=== PATIENT | male | born 1945 | race Caucasian/White ===

== ENCOUNTER 2019-06-23 20:45 | Emergency (ER) | payer MEDICARE, SELFPAY ==
[2019-06-23 20:47] VITALS: BP 156/93; PULSE 91; RESP 12; TEMP 36.6; O2SAT 99; BMI 32.1
[2019-06-23] MEDS: Dicyclomine 10 MG Capsule 20 MG PO (21:25)
[2019-06-23] MEDS: Ondansetron 4 MG/2 ML Vial IV (21:25)
[2019-06-23 21:28] VITALS: BP 156/93; PULSE 91; RESP 12; TEMP 36.6; O2SAT 99
--- NOTE | 2019-06-23 21:55 | ED.DCSUM_ITS ---
- ER Visit Summary Date of Service: 06/23/19 Chief Complaint: Nausea and vomiting History of Present Illness: The patient is a 73 M who has nausea and vomiting. He states that it started today. He has vomited 3 times and is had 2 episodes of diarrhea today as well. He has some mild abdominal cramping diffusely. He had admits to no urinary symptoms. He tried aspirin today to see if this would help with his symptoms. He denies a fever. He was recently discharged from a psychiatric facility. Physical Examination: Vital signs reviewed. HEENT exam unremarkable. Heart is regular rate and rhythm without murmurs. Lungs are clear to auscultation. Abdomen is soft with mild diffuse tenderness. No guarding or rebound tenderness. Extremities reveal no edema. Skin exam normal. Neurologic exam normal. Test Results: CBC normal. Glucose 150. Total bilirubin 4.3. AST 49. Right upper quadrant ultrasound reveals gallbladder folds with a polyp. No other acute findings are seen Emergency Department Course and Treatment: Patient was given Bentyl and Zofran. He feels much better. Patient will be discharged with the same medications for home. He will need to follow-up with his PCP if symptoms persist Treatment Plan: [] Disposition: Discharge Impression: Nausea and vomiting This note was generated with [employer] dictation software. It may contain incorrect words, spelling, and punctuation that were not noted in review of the chart prior to signing ED Disposition - Plan for ED Patient: Referrals: Care Physician,No Primary [Primary Care Provider] -
--- NOTE | 2019-06-23 22:26 | ED.RN ---
ARNOLDO CALLED FROM LAB, PT HAS STICKY CELLS Cold agglutinin disease AND IT WILL TAKE HIM AN UNDETERMINED AMOUNT OF TIME TO RUN LABS. UPDATED.
[2019-06-23 22:32] LABS: ALB/GLOB Ratio 1.3 RATIO (0.9-2.4); AST(SGOT) 49 U/L (15-37); Alanine Aminotransfer ALT/SGPT 22 U/L (16-61); Albumin, Serum 4.4 g/dL (3.2-5.0); Alkaline Phosphatase 81 U/L (45-117); Anion Gap 9 (5-15); BUN 21 mg/dL (7-18); BUN/Creat Ratio 20.2 RATIO (10-20); Calcium,Total 9.1 mg/dL (8.5-10.1); Chloride 105 mmol/L (98-107); Creatinine, Serum 1.04 mg/dL (0.70-1.30); EST Glomerular Filtration Rate 74 mL/min (>60); Est Glom Filt Rate - Afr Amer 90 mL/min (>60); Estimated Creatinine Clearance 63.26 ml/min; Globulin 3.4 g/dL (2.2-4.2); Glucose 150 mg/dL (74-106); Lipase 85 U/L (73-393); Potassium 4.3 mmol/L (3.5-5.1); Protein, Total 7.8 g/dL (6.4-8.2); Sodium Level 140 mmol/L (136-145)
[2019-06-23 22:38] LABS: Absolute Lymphocyte Count 1.36 X10^3/uL (0.83-4.51); Absolute Neutrophil Count 4.4 X10^3/uL (2.0-7.7); Basophil# 0.02 X10^3/uL; Basophil% 0.3 % (0-1); Eosinophil# 0.01 X10^3/uL; Eosinophils% 0.1 % (0-5); Hematocrit 40.8 % (40-54); Hemoglobin 13.8 g/dL (13.0-16.5); Lymphocyte # 1.36 X10^3/ul (4.0); Lymphocyte % 17.9 % (19-41); Mean Corp Hgb Conc 33.8 g/dL (32-36); Mean Corpuscular Hgb 31.4 pg (27.0-32.0); Mean Corpuscular Volume 92.9 fL (80-94); Mean Platelet Vol. 10.7 fl (6.2-12.0); Monocyte# 1.71 X10^3/uL; Monocyte% 22.6 % (0-10); NRBC Flagged by Analyzer 0 % (0-5); Neutrophil # 4.44 X10^3/uL (2.7-7.7); Neutrophil % 58.6 % (47-70); POSITIVE COUNT YES; POSITIVE DIFFERENTIAL YES; Platelet Count 116 K/mm3 (150-450); RBC Distribution Width CV 12.5 % (11.6-14.6); RBC Distribution Width SD 42.7 fl (35.1-43.9); Red Blood Count 4.39 M/mm3 (4.6-6.2); White Blood Count 7.6 K/mm3 (4.4-11.0)
--- NOTE | 2019-06-23 22:41 | US_ITS ---
STUDY: ABDOMINAL ULTRASOUND - RIGHT UPPER QUADRANT REASON FOR VISIT: Male, 73 years old pain TECHNIQUE: Ultrasound evaluation of the right upper quadrant was performed with real-time and static whitley-scale imaging. TECHNICAL QUALITY: Adequate. COMPARISON: None. FINDINGS: Liver: The liver measures 14.8 cm. There is normal echogenicity of the liver. The bile ducts are within normal limits. There is hepatic color flow. The direction of portal flow is hepatopetal. There is no demonstrated mass lesion. Gallbladder: Normal distended gallbladder. The gallbladder wall measures 2 mm. There is a negative sonographic Strickland's sign. There is no pericholecystic fluid. There are no gallstones. Possible 5 mm polyp. Common Bile Duct (C.B.D.): The common bile duct measures 3 mm. Pancreas: Limited visualization of the pancreas. Right Kidney: Normal size of the right kidney. The right kidney measures 10.6 x 4.5 x 5.3 cm. Normal renal cortex. The right cortex measures 1.4 cm. There is a 9 mm cyst. There is no right hydronephrosis. US/Gallbladder IMPRESSION: Distended gallbladder with folds and possible polyp. Right renal cyst. Electronically Signed: Иван Monet DO at 23:41 EST Tel [phone], Service support ,
[2019-06-23 22:58] LABS: Differential Indicated SCAN CRITERIA MET
[2019-06-23 23:00] VITALS: BP 127/67; PULSE 71; RESP 16; O2SAT 99
[2019-06-23 23:09] LABS: Rouleaux 4+
[2019-06-23 23:10] LABS: Platelet Estimate SLT DEC (ADEQ)
--- NOTE | 2019-06-23 23:51 | ED.DEP ---
ED Disposition - Plan for ED Patient: Disposition: Home or Assisted Living Instructions: VOMITING (6y-Adult) Prescriptions: Dicyclomine HCl [Bentyl] 20 mg PO TIDAC #20 cap Prescription Printed Ondansetron [Zofran Odt] 4 mg PO Q8H PRN PRN #10 tab PRN Reason: Nausea Prescription Printed Referrals: Care Physician,No Primary [Primary Care Provider] -
[2019-06-25 14:21] LABS: Pathologist Review Reviewed
== END 2019-06-23 23:56 | disposition home or self-care (01) ==
PROVIDERS: Emergency Provider Emergency Medicine
DX: R11.2 Nausea with vomiting, unspecified (principal); I10 Essential (primary) hypertension; E11.9 Type 2 diabetes mellitus without complications; Z79.82 Long term (current) use of aspirin
CPT/HCPCS: 76705; 80053; 83690; 85025; 96374; 99282; A4216; J2405

== ENCOUNTER 2019-08-14 19:31 | Emergency (ER) | payer MEDICARE, SELFPAY ==
[2019-08-14] VITALS (7 sets, daily range): BP systolic 113–147; BP diastolic 74–92; PULSE 62–81; RESP 16–18; TEMP 36.2–37.1; O2SAT 96–97; BMI 33.2
--- NOTE | 2019-08-14 20:46 | ED.DCSUM_ITS ---
- ER Visit Summary Date of Service: 08/14/19 Chief Complaint: Hematuria History of Present Illness: The patient is a 73 M who presents with hematuria that began today. Patient states he has bright red blood in his urine. Patient states he has some burning with urination. Patient states nothing makes it b lizy. Patient denies any fevers but admits to subjective chills. Patient denies any chest pain. Patient does admit to a cough. Patient admits to some bilateral flank pain. Patient denies any nausea or vomiting. Physical Examination: Vital signs are stable. Patient is afebrile. Patient is in no acute distress. Oral mucosa is pink and moist. Neck is supple. Trachea is midline. There is no JVD noted. Heart was regular rate and rhythm. Lungs are clear and equal bilaterally. Abdomen is soft. Bowel sounds are normal. There is no tenderness. There is no rebound or guarding noted. Skin is warm dry. Cranial nerves II through XII are intact. There are no focal motor or sensory deficits noted. Extremities are intact. There is no calf tenderness or edema. Test Results: Urinalysis shows occult blood to 50 with 25-50 red blood cells. There is no evidence of urinary tract infection. CT scan of the abdomen and pelvis was obtained. There is a right renal hypodensity but no other acute abnormality. These were interpreted by the radiologist. Emergency Department Course and Treatment: Patient was resting comfortably on reevaluation. Patient was instructed to drink plenty of fluids. Patient was instructed to follow-up with his primary care physician in 3 to 5 days. Patient was also given a referral to urology. Patient understood and was agreeable with the plan. All questions were answered. Disposition: Discharge home Impression: Hematuria This note was generated with [employer] dictation software. It may contain incorrect words, spelling, and punctuation that were not noted in review of the chart prior to signing ED Disposition - Plan for ED Patient: Disposition: Home or Assisted Living Diagnosis: Hematuria Instructions: Hematuria Referrals: Valentino Morris MD [Primary Care Provider] - 3-5 Days Nehemiah Arauz MD [STAFF PHYSICIAN] - 3-5 Days if not improving
[2019-08-14 21:26] LABS: Bacteria 0 SEEN /hpf (None Seen); Mucous, Urine 0 SEEN /hpf (<or=2+); White Blood Cells 0 SEEN /hpf (0-5)
[2019-08-14 21:31] LABS: Color, Urine Brown (Yellow); Glucose, Dipstick Normal (Normal); Ketone-Dipstick 15 mg/dl (Negative); Leukocyte Esterase-Dipstick Negative /ul (Negative); Nitrite-Dipstick Negative (Negative); Occult Blood-Urine 250 /ul (Negative); Protein-Dipstick 500 mg/dl (Negative); Specific Gravity, Urine 1.015 (1.002-1.030); Urine Bilirubin Dipstick Negative (Negative); Urine Clarity Turbid (Clear); Urine Urobilinogen 1 mg/dl (Normal); Urine pH 6.5 (5.0 - 8.0)
[2019-08-14 21:38] LABS: Amorphous Sediment 3+ URATE; Red Blood Cells-Urine 25-50 SEEN /hpf (0-5); Squamous Epithelial Cells - UA 0-5 SEEN /hpf (0-5)
--- NOTE | 2019-08-14 21:58 | CT_ITS ---
STUDY: CT ABDOMEN AND PELVIS WITHOUT CONTRAST REASON FOR EXAM: Male, 73 years old. HEMATURIA -- HX:DIABETES,HTN,GERD,HLD,COPD,ASTHMA RADIATION DOSAGE (If Supplied By Facility): CTDIvol = ( 12.43 ) mGy, DLP = ( 683.31 ) mGycm TECHNIQUE: Transaxial images were obtained from the dome of the diaphragm to the symphysis pubis without oral contrast, and without intravenous contrast. Sagittal and coronal images were reconstructed. Individualized dose optimization techniques were used for this CT. COMPARISON: None. FINDINGS: Lung bases are clear. Heart size is normal. The liver is unremarkable. Multiple stones in a contracted gallbladder. Common duct is not dilated. The spleen and pancreas are unremarkable. The adrenal glands are normal. 1.3 cm low-attenuation lesion in the right kidney, not characterized without contrast. The kidneys are otherwise unremarkable. No stones or hydronephrosis. Ureters are normal in course and caliber. No ureteral stones. The aorta is normal in caliber. Infrarenal IVC filter. There is no free fluid, free air, or organized collection. Incidental duodenal diverticulum. No bowel obstruction or inflammatory change. Normal retrocecal appendix. Small, fat-containing right inguinal hernia. The bladder is partially distended. The anterior aspect of the bladder is retracted to the right towards the inguinal hernia but does not extend into the inguinal canal. Mild degenerative changes of the lumbar spine. CT/Abdomen/Pelvis without Cont IMPRESSION: 1. No acute findings. No renal stones or obstructive uropathy. 2. Small fat-containing right inguinal hernia. The bladder is slightly retracted towards the inguinal hernia. 3. Cholelithiasis. 4. Right renal hypodensity, not characterized without contrast. Electronically Signed: Mickie Lainez MD at 23:11 EST Tel , Service support ,
== END 2019-08-14 23:37 | disposition home or self-care (01) ==
PROVIDERS: Emergency Provider Emergency Medicine; PCP Family Medicine
DX: R31.9 Hematuria, unspecified (principal); R05 Cough; R30.0 Dysuria; R10.9 Unspecified abdominal pain; M54.9 Dorsalgia, unspecified; I25.2 Old myocardial infarction; I10 Essential (primary) hypertension; E78.00 Pure hypercholesterolemia, unspecified; Z95.5 Presence of coronary angioplasty implant and graft; Z79.82 Long term (current) use of aspirin; Z79.899 Other long term (current) drug therapy
CPT/HCPCS: 74176; 81001; 99282

== ENCOUNTER 2019-09-11 15:37 | Observation (INO) | payer MEDICARE, MEDICAID, SELFPAY ==
[2019-08-14 19:32] VITALS: BMI 33.2
[2019-09-11 15:38] VITALS: BP 112/87; PULSE 95; RESP 18; TEMP 36.8; O2SAT 96
[2019-09-11 15:39] VITALS: BP 112/87; PULSE 96; RESP 18; TEMP 36.8; O2SAT 97; BMI 30.9
--- NOTE | 2019-09-11 16:23 | ED.VIS.GEN ---
History of Present Illness Chief Complaint: Weakness Detail of Chief Complaint: Blood in urine Informant: Patient Narrative: Patient presents with complaint of generalized weakness. He been seen approximate month ago for blood in his urine. He states that had seemed to clear up but then worsened again today. He made an appointment to see someone at the [facility] but they were not able to see him until October. Patient reportedly stated the [facility] last night but is homeless. He states for the week before that he was sleeping underneath a bridge. EMS did note lesions consistent with scabies. Nursing staff states he was covered in feces and has clothes are soiled. - Past Medical History (1) Hypertension Status: Chronic (2) High cholesterol Status: Chronic (3) Diabetes Status: Chronic Past Medical History - Allergies and Home Meds Allergies/Adverse Reactions: Allergies adhesive tape Adverse Reaction (Verified 09/11/19 15:42) Rash tomato Adverse Reaction (Verified 08/14/19 19:32) Rash Primary Care Physician: Valentino Morris MD [STAFF PHYSICIAN] - Nehemiah Arauz MD [STAFF PHYSICIAN] - Surgical History: - - Cardiac stent Lives: Homeless Smoking Status: Former smoker Review of Systems General: Denies: Chills, Fever Eyes: Denies: Visual changes - bilaterally ENT: Denies: Bilateral ear pain Cardiovascular: Denies: Chest pain Respiratory: Denies: Dyspnea Gastrointestinal: Denies: Abdominal pain Genitourinary: Reports: Dysuria, Hematuria Musculoskeletal: Reports: Back pain Skin: Reports: Wounds Neurological: Reports: Weakness Allergy: Denies: Uticaria Physical Exam Vital Signs/Narrative: Vital Signs Temp Pulse Resp BP Pulse Ox 09/11/19 15:39 98.3 F 96 18 112/87 H 97 09/11/19 15:38 98.3 F 95 18 112/87 H 96 Inital Vital Signs reviewed: Yes General: Well nourished, Well developed Head: Normocephalic ENT: Moist mucous membranes Neck: Supple Cardiovascular: Regular rate, Regular rhythm Respiratory: No distress, CTA bilaterally Abdomen: Soft, Nontender, Normal bowel sounds Back: - - Mild tenderness location the bilateral lumbar paraspinal muscles. No CVA tenderness. Skin: - - Linear abrasions noted on the forearms and lower extremities consistent with scabies lesions. Neurological: Alert, Oriented x3 Psychological: Normal affect Diagnostic/Tx/Re-eval Laboratory Results 09/11/19 09/11/19 09/11/19 16:30 16:30 16:46 WBC 8.6 RBC 3.47 L Hgb 12.3 L Hct 33.1 L MCV 95.4 H MCH 35.4 H MCHC 37.2 H RDW Std Deviation 45.2 H RDW Coeff of [place] 13.9 Plt Count 124 L MPV 10.1 Immature Gran % (Auto) 1.400 H Neut % (Auto) 60.7 Lymph % (Auto) 19.3 [place] % (Auto) 17.9 H Eos % (Auto) 0.5 Baso % (Auto) 0.2 Absolute Neuts (auto) 5.2 Absolute Lymphs (auto) 1.67 Nucleated RBC % 0 Differential Comment SCANNED Sodium 140 Potassium 4.1 Chloride 107 Carbon Dioxide 30.0 Anion Gap 3 L BUN 22 H Creatinine 1.14 Estim Creat Clear Calc 59.59 Est GFR (MDRD) Af Amer 81 Est GFR (MDRD) Non-Af 67 BUN/Creatinine Ratio 19.3 Glucose 415 H Calcium 8.9 Urine Color Yellow Urine Clarity Clear Urine pH 6.0 Ur Specific [place] 1.010 Urine Protein 30 H Urine Glucose (UA) 1000 H Urine Ketones 5 H Urine Occult Blood 250 H Urine Nitrite Negative Urine Bilirubin Negative Urine Urobilinogen 4 H Ur Leukocyte Esterase Negative Urine RBC 0-5 SEEN Urine WBC 0-5 SEEN Ur Squamous Epith Cells 0-5 SEEN Urine Bacteria RARE Urine Mucus 0 SEEN - Medical Decision Making Patient is given IV fluids. Social work met with the patient. She is able to contact a friend who is willing to come pick the patient up and keep him at her house to help care for him. She will make a report to Adult Protective Services as well. Patient tells me he takes his metformin, however this friend tells the social worker delinquency prevention that patient lies and is noncompliant with his medications. Patient received an additional 1 L of IV fluid as he is hyperglycemic at this time, but there is no evidence of DKA. Patient will have a repeat blood sugar obtained prior to discharge. Patient will be referred to Dr. Arauz to see if he can be seen sooner than October for his recent history of hematuria. Addendum: Patient's friends arrive to the emergency room to take the patient home. They handed the social worker delinquency prevention a bag with the patient's medications and stated that they are unable to care for him and he is unable to care for himself. They stated that the patient is now [facility] and he needs to be assigned a legal guardian. Social work states that this has to be done through Adult Protective Services and they will not be available until Friday as it is a holiday weekend. Spoke with hospitalist and he will be admitted as an observation status to have social work help with these issues. ED Disposition - Plan for ED Patient: Disposition: Acute Care Hospital [facility] Diagnosis: Generalized weakness, Hyperglycemia Instructions: ED Diabetic Hyperglycemia, WEAKNESS, Unk Cause Referrals: Valentino Morris MD [STAFF PHYSICIAN] - Nehemiah Arauz MD [STAFF PHYSICIAN] -
[2019-09-11 16:42] LABS: Absolute Lymphocyte Count 1.67 X10^3/uL (0.83-4.51); Absolute Neutrophil Count 5.2 X10^3/uL (2.0-7.7); Basophil# 0.02 X10^3/uL; Basophil% 0.2 % (0-1); Eosinophil# 0.04 X10^3/uL; Eosinophils% 0.5 % (0-5); Hematocrit 33.1 % (40-54); Hemoglobin 12.3 g/dL (13.0-16.5); Lymphocyte # 1.67 X10^3/ul (4.0); Lymphocyte % 19.3 % (19-41); Mean Corp Hgb Conc 37.2 g/dL (32-36); Mean Corpuscular Hgb 35.4 pg (27.0-32.0); Mean Corpuscular Volume 95.4 fL (80-94); Mean Platelet Vol. 10.1 fl (6.2-12.0); Monocyte# 1.55 X10^3/uL; Monocyte% 17.9 % (0-10); NRBC Flagged by Analyzer 0 % (0-5); Neutrophil # 5.24 X10^3/uL (2.7-7.7); Neutrophil % 60.7 % (47-70); POSITIVE DIFFERENTIAL YES; Platelet Count 124 K/mm3 (150-450); RBC Distribution Width CV 13.9 % (11.6-14.6); RBC Distribution Width SD 45.2 fl (35.1-43.9); Red Blood Count 3.47 M/mm3 (4.6-6.2); White Blood Count 8.6 K/mm3 (4.4-11.0)
[2019-09-11 16:50] LABS: Differential Indicated SCAN CRITERIA MET
[2019-09-11 16:52] LABS: Mucous, Urine 0 SEEN /hpf (<or=2+)
[2019-09-11 16:56] LABS: Anion Gap 3 (5-15); BUN 22 mg/dL (7-18); BUN/Creat Ratio 19.3 RATIO (10-20); Calcium,Total 8.9 mg/dL (8.5-10.1); Chloride 107 mmol/L (98-107); Creatinine, Serum 1.14 mg/dL (0.70-1.30); EST Glomerular Filtration Rate 67 mL/min (>60); Est Glom Filt Rate - Afr Amer 81 mL/min (>60); Estimated Creatinine Clearance 59.59 ml/min; Glucose 415 mg/dL (74-106); Potassium 4.1 mmol/L (3.5-5.1); Sodium Level 140 mmol/L (136-145)
[2019-09-11 17:00] LABS: Color, Urine Yellow (Yellow); Glucose, Dipstick 1000 mg/dl (Normal); Ketone-Dipstick 5 mg/dl (Negative); Leukocyte Esterase-Dipstick Negative /ul (Negative); Nitrite-Dipstick Negative (Negative); Occult Blood-Urine 250 /ul (Negative); Protein-Dipstick 30 mg/dl (Negative); Urine Bilirubin Dipstick Negative (Negative); Urine Clarity Clear (Clear); Urine Urobilinogen 4 mg/dl (Normal)
[2019-09-11] MEDS: 0.9% Normal Saline 1,000 ML 150 ML IV (17:05)
[2019-09-11 17:08] LABS: White Blood Cells 0-5 SEEN /hpf (0-5)
[2019-09-11 17:09] LABS: Bacteria RARE /hpf (None Seen); Red Blood Cells-Urine 0-5 SEEN /hpf (0-5); Squamous Epithelial Cells - UA 0-5 SEEN /hpf (0-5)
[2019-09-11 17:24] LABS: Differential Comment SCANNED
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
[2019-09-11] MEDS: 0.9% Normal Saline 1,000 ML 999 ML IV (18:40)
[2019-09-11 19:46] LABS: Bedside Glucose 303 mg/dL (70-110)
[2019-09-11 20:33] VITALS: BP 108/70; PULSE 85; RESP 16; O2SAT 99
--- NOTE | 2019-09-11 20:58 | HP.PCM_ITS ---
Problem List (1) Failure to thrive Status: Acute Qualifiers: Failure to thrive age range: in adult Qualified Code(s): R62.7 - Adult failure to thrive (2) Scabies Status: Acute (3) CAD (coronary artery disease) Status: Chronic Qualifiers: Coronary Disease-Associated Artery/Lesion type: unspecified vessel or lesion type [place] vs. transplanted heart: unspecified whether [place] or transplanted heart Associated angina: angina presence unspecified Qualified Code(s): I25.10 - Atherosclerotic heart disease of [place] coronary artery without angina pectoris (4) Former tobacco use Status: Chronic (5) Hypertension Status: Chronic Qualifiers: Hypertension type: essential hypertension Qualified Code(s): I10 - Essential (primary) hypertension (6) High cholesterol Status: Chronic (7) Diabetes Status: Chronic Qualifiers: Diabetes mellitus type: type 2 Diabetes mellitus director long term care insulin use: without director long term care use Diabetes mellitus complication status: with other spec ified complication Qualified Code(s): E11.69 - Type 2 diabetes mellitus with other specified complication History of Present Illness Date of Admission: 09/11/19 Chief Complaint: Failure to thrive The patient is a 73 y/o M w/ PMHx: CAD s/p OK, PCI, HTN, HLD, Anxiety and Depression, Obesity, Former Tobacco use who presents to the [facility] ED on 09/11/19, noted to be homeless, living [place] a bridge for the last week, disheveled with evidence of scabies with generalized weakness, unable to care for self prompting eventual ED presentation and noted poor investment in his self-care, not taking his medications unless directly given to him. The friend contacted per ED, notes he is non-compliant, not capable of taking care of himself. Patient in the ED stated that he has not been taking his medication secondary to inability to fill them. Discussions extremely appropriate and completely oriented during magaly luation. Patient notes that he has been living outside, homeless secondary to no place to live. Work-up in the ED included T 98.3, heart 95, BP 112/87, respiratory rate 18, 96% on room air, CBC with WC 8.6, hemoglobin 12.3 with MCV 95.4, platelet 124 with no significant left shift, BMP w/ BUN/Cr 22/1.14, glucose 415, urinalysis with specific gravity 1.010, protein 30, glucose 1000, ketones 5, occult blood 250, negative nitrite, negative leukocyte esterase, RBC 0-5. In the ED patient ministered normal saline. Past Medical History Past Medical History (Chronic Problems): Chronic Problems Hypertension (Chronic) High cholesterol (Chronic) Diabetes (Chronic) CAD (coronary artery disease) (Chronic) Former tobacco use (Chronic) Allergies adhesive tape Adverse Reaction (Verified 09/11/19 15:42) Rash tomato Adverse Reaction (Verified 08/14/19 19:32) Rash Home Medications: Ambulatory Orders Medication Instructions Recorded Aspirin [Aspir 81] 81 mg PO DAILY 06/23/19 Lisinopril 2.5 mg PO DAILY 08/14/19 Simvastatin 40 mg PO DAILY 08/14/19 Amoxicillin 875 mg PO BID 09/11/19 Benzonatate [Tessalon Perle] 100 mg PO TID PRN PRN 09/11/19 Cetirizine HCl [Allergy Relief] 10 mg PO DAILY 09/11/19 Cholecalciferol (VIT D3) [Vitamin 1,000 unit PO DAILY 09/11/19 D] Citalopram [Celexa] 20 mg PO DAILY 09/11/19 Glipizide [Glipizide ER] 10 mg PO DAILY 09/11/19 Latanoprost 2.5 ml OP DAILY 09/11/19 Umeclidinium Bland [Incruse 62.5 mcg IH DAILY 09/11/19 Ellipta] Venlafaxine HCl [Effexor Xr] 75 mg PO DAILY 09/11/19 metFORMIN HCl [Glucophage] 1,000 mg PO DAILY 09/11/19 Surgical History: - - Cardiac stent, T+A. Psychiatric History: Anxiety, Depression Lives: Homeless Smoking Status: Former smoker - Quit remotely. Tobacco Use: Non-smoker Alcohol: None Drugs: None - *Family History Maternal History Items: High Cholesterol, Heart Disease, Hypertension Paternal History Items: High Cholesterol, Heart Disease, Hypertension Review of Systems Constitutional: Denies: Chills, Fever, Weight Change HEENT: Denies: Head Aches, Sinus Congestion, Sinus Drainage Cardiovascular: Denies: Chest Pain, Palpitations Respiratory: Denies: Cough, Shortness of breath at rest, Sputum production Gastrointestinal: Denies: Abdominal Pain, Nausea, Vomiting Genitourinary: Denies: Dysuria Musculoskeletal: Denies: Joint Pain, Joint Tenderness Skin: Reports: Pruritis, Skin Changes. Denies: Rash, Wounds Neurological: Denies: Numbness, Tingling, Focal weakness Psychiatric: Reports: Anxiety, Depression. Denies: Homicidal Ideations, Suicidal Ideations Hematologic/ Lymphatic: Reports: Anemia. Denies: Easy Bruising, Easy Bleeding VTE Information - Inpt Only VTE Present on Admission: No VTE Mechan Device Prophylaxis: None VTE Pharm Prophylaxis ordered?: No Reason prophylaxis not ordered:: Treatment Not Indicated Patient Problems: Active and Suspected Problems Generalized weakness (Acute) Hyperglycemia (Acute) Failure to thrive (Acute) Scabies (Acute) Subjective: Walking in the room, status post aggressive cleansing per ED staff as had been covered in feces and was initially very disheveled. Objective: Physical Examination: General: awake, alert, oriented to self, place, recent and remote events, seems completely appropriate and seems to have all his mental faculties despite his history of noncompliance with medications and poor self-care, remains cooperative, seated upright in the ED bed in no apparent distress. Skin: normal color, turgor, no icterus, cyanosis except noted linear abrasions to the forearms and lower extremities concerning for scabies lesions. HEENT: AT/NC, EOMI, PERRLA, MMM, no carotid bruits or JVD noted. Lungs: CTA bilaterally, moderate effort, moderate decrease BL bases, no rales, ronchi or wheezing. Heart: Regular rate and rhythm; no gallop, rub audible. Abdomen: soft, obese, NTTP, ND, normal BS, no HSM. Extremities: no cyanosis, clubbing, or edema, see skin. Neurological: patient awake, alert, oriented as noted; cognitive function appears likely baseline intact; pupils equally reactive to light and accomodation; cranial nerves II-XII grossly normal, moving all 4 extremities, no focal deficits, strength preserved. Psychiatric: affect appears normal, discussing appropriately, no obvious deficits in mental faculties asides poor self-care but states that he is not been taking his medications as he cannot fill them, no acute evidence of depressive or anxiety feelings. - Physical Exam Vitals/I&O's: Vital Signs Temp Pulse Resp BP Pulse Ox 98.3 F 85 16 108/70 99 09/11/19 15:39 09/11/19 20:33 09/11/19 20:33 09/11/19 20:33 09/11/19 20:33 Oxygen Delivery Method Room Air Weight: 216 lb 0.848 oz Body Mass Index (BMI) 30.9 Intake and Output for Last 24 Hours 09/09/19 09/10/19 09/11/19 23:59 23:59 23:59 Intake Total 1237.5 / 1237.5 Balance 1237.5 / 1237.5 Laboratory Results 09/11/19 16:30: WBC 8.6, RBC 3.47 L, Hgb 12.3 L, Hct 33.1 L, MCV 95.4 H, MCH 35.4 H, MCHC 37.2 H, RDW Std Deviation 45.2 H, RDW Coeff of [place] 13.9, Plt Count 124 L, MPV 10.1, Immature Gran % (Auto) 1.400 H, Neut % (Auto) 60.7, Lymph % (Auto) 19.3, [place] % (Auto) 17.9 H, Eos % (Auto) 0.5, Baso % (Auto) 0.2, Absolute Neuts (auto) 5.2, Absolute Lymphs (auto) 1.67, Nucleated RBC % 0, Differential Comment SCANNED 09/11/19 16:30: Sodium 140, Potassium 4.1, Chloride 107, Carbon Dioxide 30.0, Anion Gap 3 L, BUN 22 H, Creatinine 1.14, Estim Creat Clear Calc 59.59, Est GFR (MDRD) Af Amer 81, Est GFR (MDRD) Non-Af 67, BUN/Creatinine Ratio 19.3, Glucose 415 H, Calcium 8.9 09/11/19 16:46: Urine Color Yellow, Urine Clarity Clear, Urine pH 6.0, Ur Specific [place] 1.010, Urine Protein 30 H, Urine Glucose (UA) 1000 H, Urine Ketones 5 H, Urine Occult Blood 250 H, Urine Nitrite Negative, Urine Bilirubin Negative, Urine Urobilinogen 4 H, Ur Leukocyte Esterase Negative, Urine RBC 0-5 SEEN, Urine WBC 0-5 SEEN, Ur Squamous Epith Cells 0-5 SEEN, Urine Bacteria RARE, Urine Mucus 0 SEEN 09/11/19 19:38: POC Glucose 303 H Current Medications Sodium Chloride () 1,000 mls @ 150 mls/hr IV .Q6H40M RON Last Infusion: 09/11/19 18:40 Dose: 0 mls/hr Documented by: Assessment/Plan All Active Problems Generalized weakness (Acute) Hyperglycemia (Acute) Failure to thrive (Acute) Scabies (Acute) The patient is a 73 y/o M w/ PMHx: CAD s/p OK, PCI, HTN, HLD, Anxiety and Depression, Obesity, Former Tobacco use who presents to the [facility] ED on 09/11/19, noted to be homeless, living [place] a bridge for the last week, disheveled with evidence of scabies with generalized weakness, unable to care for self prompting eventual ED presentation and noted poor investment in his self-care, not taking his medications unless directly given to him. 1. Failure to Thrive, Debility, Generalized Weakness: Patient unable to care for self, homeless, not taking his medications, concern for appropriate mental capabilities/faculties to make appropriate self care decisions, will admit to [facility], re-initiate his home medications, consult SW/CM for need for potential guardianship pending their evaluation if appropriate. 2. Scabies: Will request initiation permethrin cream full body application, 30 gm application x 1, remove after 8-14 hours. Apply this evening and shower in AM. Consider re-application in 1-2 weeks. 3. Diabetes mellitus type II with hyperglycemia: Not taking his medications, will obtain HgbA1c, initiation low dose BID lantus in interim, hold oral regimen, ADA diet, accu checks w/ ISS, nutrition consultation for education and teaching. 4. Chronic COPD: Will hold home inhalers, transition to ATC Duoneb, PRN albuterol while inpatient. 5. Macrocytic anemia, chronic: Admission Hgb 12.3, mildly elevated MCV, will obtain Fe panel, ferritin, vitamin B12 and folic acid. 6. Hypertension: Continue home regimen including lisinopril, PRN hydralazine. 7. Hyperlipidemia: Continue home statin regimen. 8. Anxiety and depression: Continue home venlafaxine regimen. Currently listed also on celexa, unclear reason for dual similar class treatment, risk for serotonin syndrome. 9. CAD: Hx OK, s/p PCI, continue asa, statin, not on BB, continue ACEI. 10. Former tobacco use: Encouraged continued tobacco cessation. 11. DVT prophylaxis: Low risk, encourage ambulation. Code Visit OBSV E&M: 65121 Initial observation care L3
[2019-09-11 22:06] VITALS: BMI 30.2
[2019-09-11 22:15] VITALS: BP 107/60; PULSE 94; RESP 18; TEMP 36.9; O2SAT 99
[2019-09-11 22:28] VITALS: BMI 30.2
[2019-09-11 22:30] VITALS: O2SAT 99
[2019-09-11 22:40] LABS: Bedside Glucose 285 mg/dL (70-110)
[2019-09-11] MEDS: Famotidine 20 MG Tablet PO (23:27)
[2019-09-11] MEDS: Insulin Lispro 100 UNIT/ML INSULN.PEN SC (23:27)
[2019-09-12] VITALS (7 sets, daily range): BP systolic 96–117; BP diastolic 55–65; PULSE 68–77; RESP 16–18; TEMP 36.4–36.8; O2SAT 92–97
[2019-09-12] MEDS: Permethrin 1% 1 APPLIC Bottle TOPICAL (00:50)
[2019-09-12] MEDS: Insulin Lispro 100 UNIT/ML INSULN.PEN SC ×4 (06:39→21:00)
[2019-09-12 06:45] LABS: Bedside Glucose 213 mg/dL (70-110)
[2019-09-12] MEDS: Ipratropium/Albuterol Sulfate 3 ML AMPUL.NEB INHALATION ×3 (06:45→19:38)
[2019-09-12 07:32] LABS: Ferritin 576 ng/mL (26-388); Iron 50 ug/dL (65-175); Iron Binding Capacity,Total 266 ug/dL (250-450); PERCENT IRON SATURATION 18.8 % (15.0-55.0)
[2019-09-12 08:29] LABS: Hemoglobin A1c 8.1 % (4.2-6.3)
[2019-09-12] MEDS: Famotidine 20 MG Tablet PO ×2 (10:31→21:00)
[2019-09-12] MEDS: Glucerna Shake 120 ML LIQUID PO ×4 (10:31→21:00)
[2019-09-12] MEDS: Loratadine 10 MG Tablet PO (10:31)
[2019-09-12] MEDS: Latanoprost 0.005% 1 Bottle 1 DRP EACH EYE (10:32)
[2019-09-12] MEDS: Venlafaxine XR 75 MG Capsule PO (10:32)
[2019-09-12] MEDS: Aspirin E.C. 81 MG Tablet PO (10:32)
--- NOTE | 2019-09-12 10:38 | PCM.PROGNOTE ---
Patient Problems: Active and Suspected Problems Generalized weakness (Acute) Hyperglycemia (Acute) Failure to thrive (Acute) Scabies (Acute) Subjective: This 73-year-old diabetic male was consulted to podiatry after being admitted to the hospital yesterday for failure to thrive. This gentleman is homeless and was living under a bridge. He is thought to have scabies. He was consulted to podiatry because he has been unable to safely debride his toenails on his own. He is unsure the last time that he had his toenails debrided and states that they are tender and painful especially while wearing shoes. Patient currently denies any feelings of nausea, vomiting, fever, chills. - Physical Exam Vitals/I&O's: Vital Signs Temp Pulse Resp BP Pulse Ox 98.2 F 71 16 96/55 L 95 09/12/19 10:15 09/12/19 10:15 09/12/19 10:15 09/12/19 10:15 09/12/19 10:15 Oxygen Delivery Method Room Air Weight: 95.4 kg Body Mass Index (BMI) 30.2 Finger Stick Blood Glucose 303 Intake and Output for Last 24 Hours 09/10/19 09/11/19 09/12/19 23:59 23:59 23:59 Intake Total 1637.5 / 1637.5 500 / 500 Balance 1637.5 / 1637.5 500 / 500 General: Alert, Oriented x3, Cooperative, No apparent distress Extremities: No cyanosis, Capillary Refill Less than 3 Seconds - To distal digits of each foot, No Calf Tenderness - Negative Hollie and Mathews signs bilateral, Diminished Peripheral Pulses - DP pulses slightly diminished bilateral and PT pulses palpable bilateral Skin: - - Toenails 234 and 5 of the right foot and 1234 and 5 of the left foot are thickened, elongated, dystrophic, with the presence of subungual debris and pain noted on palpation of each of these nails. 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 Neurological: - - Epicritic sensation diminished bilateral Psych/Mental Status: Normal Affect, Appropriate Laboratory Results 09/11/19 16:30: WBC 8.6, RBC 3.47 L, Hgb 12.3 L, Hct 33.1 L, MCV 95.4 H, MCH 35.4 H, MCHC 37.2 H, RDW Std Deviation 45.2 H, RDW Coeff of [place] 13.9, Plt Count 124 L, MPV 10.1, Immature Gran % (Auto) 1.400 H, Neut % (Auto) 60.7, Lymph % (Auto) 19.3, [place] % (Auto) 17.9 H, Eos % (Auto) 0.5, Baso % (Auto) 0.2, Absolute Neuts (auto) 5.2, Absolute Lymphs (auto) 1.67, Nucleated RBC % 0, Differential Comment SCANNED 09/11/19 16:30: Sodium 140, Potassium 4.1, Chloride 107, Carbon Dioxide 30.0, Anion Gap 3 L, BUN 22 H, Creatinine 1.14, Estim Creat Clear Calc 59.59, Est GFR (MDRD) Af Amer 81, Est GFR (MDRD) Non-Af 67, BUN/Creatinine Ratio 19.3, Glucose 415 H, Calcium 8.9 09/11/19 16:46: Urine Color Yellow, Urine Clarity Clear, Urine pH 6.0, Ur Specific [place] 1.010, Urine Protein 30 H, Urine Glucose (UA) 1000 H, Urine Ketones 5 H, Urine Occult Blood 250 H, Urine Nitrite Negative, Urine Bilirubin Negative, Urine Urobilinogen 4 H, Ur Leukocyte Esterase Negative, Urine RBC 0-5 SEEN, Urine WBC 0-5 SEEN, Ur Squamous Epith Cells 0-5 SEEN, Urine Bacteria RARE, Urine Mucus 0 SEEN 09/11/19 19:38: POC Glucose 303 H 09/11/19 22:21: POC Glucose 285 H 09/12/19 05:30: Magnesium 2.0, Iron 50 L, TIBC 266, Iron Saturation 18.8, Ferritin 576 H, Folate 17.80 09/12/19 05:30: Hemoglobin A1c 8.1 H 09/12/19 05:30: Vitamin B12 Pending 09/12/19 06:36: POC Glucose 213 H Current Medications Acetaminophen (Tylenol) 650 mg PO Q6H PRN PRN PRN Reason: Pain Score 1-10/Temp > 100.7 F Al Hydroxide/Mg Hydroxide (Mylanta Ii) 30 ml PO Q6H PRN PRN PRN Reason: Gastric Burning Albuterol Sulfate (Ventolin Aerosols) 2.5 mg INHALATION Q2H PRN PRN PRN Reason: Shortness of Breath/Wheezing Albuterol/Ipratropium (Duoneb) 3 ml INHALATION Q6HWA.RT [facility] Last Admin: 09/12/19 06:45 Dose: 3 ml Documented by: Aspirin (Ecotrin) 81 mg PO DAILY [facility] Atorvastatin Calcium (Lipitor) 20 mg PO QHS [facility] Cholecalciferol (Vitamin D) 1,000 unit PO DAILY [facility] Famotidine (Pepcid) 20 mg PO BID [facility] Last Admin: 09/11/19 23:27 Dose: 20 mg Documented by: Glucagon () 1 mg IM .X1 PRN PRN Reason: Hypoglycemia Guaifenesin (Robitussin) 20 ml PO Q4H PRN PRN PRN Reason: COUGH Hydralazine HCl (Apresoline Iv) 10 mg IV Q4H PRN PRN PRN Reason: SBP > 160 Sodium Chloride () 250 mls @ 15 mls/hr IV .Q84D60L PRN PRN Reason: Saline Flush Dextrose (Dextrose 10%-Water) 250 mls @ 999 mls/hr IV .Q16M PRN; Protocol PRN Reason: HYPOGLYCEMIA Insulin Glargine (Lantus (Bk)) 10 units SC BID [facility] Last Admin: 09/11/19 23:28 Dose: 10 units Documented by: Insulin Human Lispro (Humalog Kwikpen (Bkc)) 0 unit SC ACHS [facility]; Protocol Last Admin: 09/12/19 06:39 Dose: 2 units Documented by: Latanoprost (Xalatan Opthalmic) 1 drop EACH EYE DAILY [facility] Lisinopril (Zestril) 2.5 mg PO DAILY [facility] Loratadine (Claritin) 10 mg PO DAILY [facility] Magnesium Hydroxide (Milk Of Magnesia) 30 ml PO DAILY PRN PRN PRN Reason: Constipation Melatonin (Melatonin) 3 mg PO QHS PRN PRN PRN Reason: INSOMNIA Nutritional Formula (Lactose Free) (Glucerna Shake) 120 ml PO 4X/DAY [facility] Ondansetron HCl (Zofran) 4 mg IV Q8H PRN PRN PRN Reason: NAUSEA/VOMITING Prochlorperazine Edisylate (Compazine Iv) 5 mg IV Q4H PRN PRN PRN Reason: Breakthrough nausea/vomiting Psyllium Hydrophilic Mucilloid (Metamucil) 1 packet PO DAILY PRN PRN PRN Reason: Constipation Senna/Docusate Sodium (Senokot-S, Wendie-Colace) 2 tablet PO BID PRN PRN PRN Reason: Constipation Sodium Chloride () 10 - 40 ml IV UD PRN PRN Reason: SALINE FLUSH Throat Lozenges (Cepacol Sore Throat Lozenge) 1 lozenge MUCOUS MEM Q2H PRN PRN PRN Reason: SORE THROAT Venlafaxine HCl (Effexor Xr) 75 mg PO DAILY RON Medical Necessity - Tobacco Use Smoking Status: Former smoker Tobacco Use: Non-smoker Assessment/Plan All Active Problems Generalized weakness (Acute) Hyperglycemia (Acute) Failure to thrive (Acute) Scabies (Acute) Tinea unguium Pain in toes left Pain in toes right DM Possible scabies Other comorbidities This patient was carefully examined and evaluated in detail today after being consulted to podiatry for thickened, elongated, painful toenails 2, 3, 4, 5 of the right foot and 1, 2, 3, 4, 5 of the left foot. Patient's WBC is 8.6. Hemoglobin A1c is 8.1. Vital signs stable. Patient's feet were carefully examined and evaluated. The above-mentioned toenails of the right and left foot were then carefully debrided using a nail nipper. This was done without incident. Upon completion patient noted relief. Discussed the importance of proper foot health with the patient. He is instructed to keep feet covered and warm. He is also instructed to make sure he is an appropriate shoes. Discussed the importance of daily foot checks. Also discussed the importance of tight glycemic control. He relates that he understands all of this. Podiatry can follow this patient on an as-needed basis from here on out. Thank you for this consult.
[2019-09-12 10:51] LABS: Bedside Glucose 206 mg/dL (70-110)
--- NOTE | 2019-09-12 16:27 | PCM.PROGNOTE ---
Patient Problems: Active and Suspected Problems Generalized weakness (Acute) Hyperglycemia (Acute) Failure to thrive (Acute) Scabies (Acute) Subjective: Patient was seen and examined today, he has no specific complaints to this examiner. Podiatry is here to provide nail care for the patient. - Physical Exam Vitals/I&O's: Vital Signs Temp Pulse Resp BP Pulse Ox 98.1 F 77 18 106/56 L 92 09/12/19 16:15 09/12/19 16:15 09/12/19 16:15 09/12/19 16:15 09/12/19 16:15 Oxygen Delivery Method Room Air Weight: 95.4 kg Body Mass Index (BMI) 30.2 Finger Stick Blood Glucose 303 Intake and Output for Last 24 Hours 09/10/19 09/11/19 09/12/19 23:59 23:59 23:59 Intake Total 1637.5 / 1637.5 980 / 980 Balance 1637.5 / 1637.5 980 / 980 General: Alert, Oriented x3, Cooperative, No apparent distress, Well developed, Well nourished HEENT: Atraumatic, PERRLA, EOMI, Normocephalic Oral: Moist Mucosa Neck: Supple, No JVD, Trachea Midline, Thyroid Normal Size and Texture Lungs: Clear to auscultation, Normal air movement, No rhonchi, No wheeze, No rales Cardiovascular: Regular rate, Regular Rhythm, Normal S1, Normal S2, No murmurs, No Ectopic Activity, PMI Normal, No rub noted, No Gallop Abdomen: Bowel Sounds Present, Soft, Non Tender, Non-Distended, No hernias noted Extremities: No clubbing, No cyanosis, No edema, Capillary Refill Less than 3 Seconds Skin: No rashes, No breakdown Musculoskeletal: No Tenderness to Palpation of Joints or Extremities Neurological: Cranial nerves II-XII grossly intact, Neuro grossly intact, Muscle tone normal, Sensory exam intact to light touch and pain Psych/Mental Status: Normal Affect, Appropriate Laboratory Results 09/11/19 16:30: WBC 8.6, RBC 3.47 L, Hgb 12.3 L, Hct 33.1 L, MCV 95.4 H, MCH 35.4 H, MCHC 37.2 H, RDW Std Deviation 45.2 H, RDW Coeff of [place] 13.9, Plt Count 124 L, MPV 10.1, Immature Gran % (Auto) 1.400 H, Neut % (Auto) 60.7, Lymph % (Auto) 19.3, [place] % (Auto) 17.9 H, Eos % (Auto) 0.5, Baso % (Auto) 0.2, Absolute Neuts (auto) 5.2, Absolute Lymphs (auto) 1.67, Nucleated RBC % 0, Differential Comment SCANNED 09/11/19 16:30: Sodium 140, Potassium 4.1, Chloride 107, Carbon Dioxide 30.0, Anion Gap 3 L, BUN 22 H, Creatinine 1.14, Estim Creat Clear Calc 59.59, Est GFR (MDRD) Af Amer 81, Est GFR (MDRD) Non-Af 67, BUN/Creatinine Ratio 19.3, Glucose 415 H, Calcium 8.9 09/11/19 16:46: Urine Color Yellow, Urine Clarity Clear, Urine pH 6.0, Ur Specific [place] 1.010, Urine Protein 30 H, Urine Glucose (UA) 1000 H, Urine Ketones 5 H, Urine Occult Blood 250 H, Urine Nitrite Negative, Urine Bilirubin Negative, Urine Urobilinogen 4 H, Ur Leukocyte Esterase Negative, Urine RBC 0-5 SEEN, Urine WBC 0-5 SEEN, Ur Squamous Epith Cells 0-5 SEEN, Urine Bacteria RARE, Urine Mucus 0 SEEN 09/11/19 19:38: POC Glucose 303 H 09/11/19 22:21: POC Glucose 285 H 09/12/19 05:30: Magnesium 2.0, Iron 50 L, TIBC 266, Iron Saturation 18.8, Ferritin 576 H, Folate 17.80 09/12/19 05:30: Hemoglobin A1c 8.1 H 09/12/19 05:30: Vitamin B12 Pending 09/12/19 06:36: POC Glucose 213 H 09/12/19 10:35: POC Glucose 206 H Current Medications Acetaminophen (Tylenol) 650 mg PO Q6H PRN PRN PRN Reason: Pain Score 1-10/Temp > 100.7 F Al Hydroxide/Mg Hydroxide (Mylanta Ii) 30 ml PO Q6H PRN PRN PRN Reason: Gastric Burning Albuterol Sulfate (Ventolin Aerosols) 2.5 mg INHALATION Q2H PRN PRN PRN Reason: Shortness of Breath/Wheezing Albuterol/Ipratropium (Duoneb) 3 ml INHALATION Q6HWA.RT [facility] Last Admin: 09/12/19 12:30 Dose: 3 ml Documented by: Aspirin (Ecotrin) 81 mg PO DAILY [facility] Last Admin: 09/12/19 10:32 Dose: 81 mg Documented by: Atorvastatin Calcium (Lipitor) 20 mg PO QHS [facility] Cholecalciferol (Vitamin D) 1,000 unit PO DAILY [facility] Last Admin: 09/12/19 10:31 Dose: 1,000 unit Documented by: Famotidine (Pepcid) 20 mg PO BID [facility] Last Admin: 09/12/19 10:31 Dose: 20 mg Documented by: Glucagon () 1 mg IM .X1 PRN PRN Reason: Hypoglycemia Guaifenesin (Robitussin) 20 ml PO Q4H PRN PRN PRN Reason: COUGH Hydralazine HCl (Apresoline Iv) 10 mg IV Q4H PRN PRN PRN Reason: SBP > 160 Sodium Chloride () 250 mls @ 15 mls/hr IV .[id number] PRN PRN Reason: Saline Flush Dextrose (Dextrose 10%-Water) 250 mls @ 999 mls/hr IV .Q16M PRN; Protocol PRN Reason: HYPOGLYCEMIA Insulin Glargine (Lantus (Bkc)) 10 units SC BID [facility] Last Admin: 09/12/19 10:37 Dose: 10 units Documented by: Insulin Human Lispro (Humalog Kwikpen (Bkc)) 0 unit SC ACHS [facility]; Protocol Last Admin: 09/12/19 16:24 Dose: 5 units Documented by: Latanoprost (Xalatan Opthalmic) 1 drop EACH EYE DAILY [facility] Last Admin: 09/12/19 10:32 Dose: 1 drop Documented by: Lisinopril (Zestril) 2.5 mg PO DAILY [facility] Last Admin: 09/12/19 10:21 Dose: Not Given Documented by: Loratadine (Claritin) 10 mg PO DAILY [facility] Last Admin: 09/12/19 10:31 Dose: 10 mg Documented by: Magnesium Hydroxide (Milk Of Magnesia) 30 ml PO DAILY PRN PRN PRN Reason: Constipation Melatonin (Melatonin) 3 mg PO QHS PRN PRN PRN Reason: INSOMNIA Nutritional Formula (Lactose Free) (Glucerna Shake) 120 ml PO 4X/DAY [facility] Last Admin: 09/12/19 16:24 Dose: 120 ml Documented by: Ondansetron HCl (Zofran) 4 mg IV Q8H PRN PRN PRN Reason: NAUSEA/VOMITING Prochlorperazine Edisylate (Compazine Iv) 5 mg IV Q4H PRN PRN PRN Reason: Breakthrough nausea/vomiting Psyllium Hydrophilic Mucilloid (Metamucil) 1 packet PO DAILY PRN PRN PRN Reason: Constipation Senna/Docusate Sodium (Senokot-S, Wendie-Colace) 2 tablet PO BID PRN PRN PRN Reason: Constipation Sodium Chloride () 10 - 40 ml IV UD PRN PRN Reason: SALINE FLUSH Throat Lozenges (Cepacol Sore Throat Lozenge) 1 lozenge MUCOUS MEM Q2H PRN PRN PRN Reason: SORE THROAT Venlafaxine HCl (Effexor Xr) 75 mg PO DAILY [facility] Last Admin: 09/12/19 10:32 Dose: 75 mg Documented by: Medical Necessity - Tobacco Use Smoking Status: Former smoker Tobacco Use: Non-smoker Assessment/Plan All Active Problems Generalized weakness (Acute) Hyperglycemia (Acute) Failure to thrive (Acute) Scabies (Acute) #1 generalized debility-PT and OT will continue to see the patient, he will need snf placement #2 self-neglect #3 coronary artery disease #4 hyperlipidemia #5 suspected scabies #6 type 2 diabetes-patient will be placed on Amaryl #7 iron deficiency anemia-patient will be placed on iron supplements Code Visit OBSV E&M: 20198 Subsequent observation care L3
[2019-09-12 16:31] LABS: Bedside Glucose 327 mg/dL (70-110)
[2019-09-12] MEDS: metFORMIN HCl 500 MG Tablet PO (17:22)
[2019-09-12] MEDS: Atorvastatin Calcium 20 MG Tablet PO (21:00)
[2019-09-12 21:06] LABS: Bedside Glucose 310 mg/dL (70-110)
[2019-09-13] VITALS (7 sets, daily range): BP systolic 98–128; BP diastolic 60–69; PULSE 66–88; RESP 16–18; TEMP 36.3–36.7; O2SAT 94–97
[2019-09-13] MEDS: Insulin Lispro 100 UNIT/ML INSULN.PEN SC ×4 (06:48→23:01)
[2019-09-13 06:56] LABS: Bedside Glucose 184 mg/dL (70-110)
[2019-09-13] MEDS: Venlafaxine XR 75 MG Capsule PO (08:06)
[2019-09-13] MEDS: Aspirin E.C. 81 MG Tablet PO (08:06)
[2019-09-13] MEDS: metFORMIN HCl 500 MG Tablet PO ×2 (08:06→16:51)
[2019-09-13] MEDS: Famotidine 20 MG Tablet PO ×2 (08:06→23:01)
[2019-09-13] MEDS: Latanoprost 0.005% 1 Bottle 1 DRP EACH EYE (08:09)
[2019-09-13 09:06] LABS: Vitamin B12 630 pg/mL (211-911)
[2019-09-13] MEDS: Ipratropium/Albuterol Sulfate 3 ML AMPUL.NEB INHALATION ×2 (11:03→20:09)
--- NOTE | 2019-09-13 11:50 | CASEMGMT ---
SW met with patient, introduced self and role at [facility]. Patient was able to give SW a copy of his insurance card. He is up independently in the room. Therefore, it is highly unlikely patient's insurance will approve him to go to a care home. Patient is in agreement with going to a care home. Patient has Medicaid QMB, but not sure this can be used to get into care home. SW is also working with ED SW to help patient. Ira NUR MSW
--- NOTE | 2019-09-13 11:54 | CASEMGMT ---
SOCIAL WORK MET WITH PATIENT IN ROOM TO DISCUSS DISCHARGE PLANNING. PATIENT A&OX3. PATIENT REMEMBERED THIS WORKER FROM FRIDAY. PATIENT STATES I'M FEELING BETTER THAN I DID FRIDAY. PATIENT REVIEWED RESIDENTIAL LIST AND REQUESTS REFERRAL TO [facility]. INFORMED PATIENT THIS WORKER WILL MAKE REFERRAL. PATIENT STATES HAS MEDICARE AND MEDICAID AND STATES NEEDS TO GET BANK STATEMENT TO [facility] BEFORE THE . PATIENT STATES WILL LOCATE BANK STATEMENT AND REQUESTS ASSISTANCE WITH GETTING STATEMENT TO [facility]. CALL TO [facility], SPOKE WITH [facility]. UPDATED ON REFERRAL. [facility] WILL REVIEW REFERRAL AND GET BACK TO THIS WORKER. REFERRAL FAXED AT THIS TIME. Tim JACOBO, RESIDENTIAL YOUTH COUNSELOR, POLITICAL SCIENTIST
[2019-09-13 11:56] LABS: Bedside Glucose 248 mg/dL (70-110)
--- NOTE | 2019-09-13 13:02 | CHAPLAIN ---
Type of Pastoral Visit _x__ Initial Visit ___ Follow-up Visit ___ On-call Visit ___ General Patient Visit ___ Spiritual Assessment ___ Family Conference ___ Bereavement ___ Rapid Response ___ Code Blue ___ Other (describe below) Pastoral Care Referral From _x__ Patient ___ Family ___ Nurse ___ Physician ___ [facility] Psychiat[facility] ___ Ruby On Rails Engineer ___ Other (describe below) Sacrament/Intervention _x__ Active listening ___ Anointing ___ Muslim ___ Bereavement ___ Communion ___ Batool exploration ___ _x__ Life review _x__ Prayer ___ Reconciliation ___ Sacrament of Sick _x__ Supportive presence ___ Wedding ___ Other (describe below) Pastoral Comments patient says that he is going to ECF; pt states that he liked the last ECF that he was in but cannot remember the name of it; pt says that he misses his brother Piter that lives in [place] and that Piter would care for him if he was able but he knows that Piter has limited resources too; pt welcomes prayer and presence of the windlasser
--- NOTE | 2019-09-13 14:51 | CASEMGMT ---
SOCIAL WORK CALL TO [facility], SPOKE WITH HARLEY. PER HARLEY, THEY ARE REVIEWING REFERRAL AND SHE BELIEVES [employer] MAKER CALLED AND SPOKE WITH HERNANDE[facility] BLACK TO SET UP ON-SITE VISIT WITH PATIENT. CALL TO [facility] BL[facility] TO UPDATE ON THE ABOVE. Tim JACOBO MSW, MANAGER UTILITY.
[2019-09-13] MEDS: Albuterol 2.5 MG/3 ML VIAL.NEB. INHALATION (15:10)
--- NOTE | 2019-09-13 15:55 | CASEMGMT ---
SOCIAL WORK RECEIVED CALL FROM SHEREE WITH [facility]. PER SHEREE, WILL BE IN LATER TODAY TO COMPLETE ON-SITE VISIT WITH PATIENT. WILL UPDATE STAFF. Tmi JACOBO MSW, HEMATOLOGY ONCOLOGY CONSULTANT.
[2019-09-13] MEDS: Glucerna Shake 120 ML LIQUID PO ×2 (16:51→23:01)
[2019-09-13 17:01] LABS: Bedside Glucose 275 mg/dL (70-110)
--- NOTE | 2019-09-13 20:50 | PCM.PROGNOTE ---
Patient Problems: Active and Suspected Problems Generalized weakness (Acute) Hyperglycemia (Acute) Failure to thrive (Acute) Scabies (Acute) Subjective: Patient was seen and examined today, initially when he was approached by social sciences department chair, he refused to go to a residential facility, I went and had a talk with the patient and told him his blood sugars were not well controlled and he needed monitoring of his medications which she is unable to do. Patient agreed to go to a residential facility, the process is underway by social sciences department chair to get the patient placed in a residential facility. Ultimately he will need a guardian appointed. - Physical Exam Vitals/I&O's: Vital Signs Temp Pulse Resp BP Pulse Ox 97.8 F 88 18 98/63 97 09/13/19 15:00 09/13/19 20:09 09/13/19 20:09 09/13/19 15:00 09/13/19 15:10 Oxygen Delivery Method Room Air Weight: 95.4 kg Body Mass Index (BMI) 30.2 Finger Stick Blood Glucose 303 Intake and Output for Last 24 Hours 09/11/19 09/12/19 09/13/19 23:59 23:59 23:59 Intake Total 1637.5 / 1637.5 1380 / 1880 2300 / 2300 Balance 1637.5 / 1637.5 1380 / 1880 2300 / 2300 General: Alert, Oriented x3, Cooperative, No apparent distress, Well developed HEENT: Atraumatic, PERRLA, EOMI, Normocephalic Oral: Moist Mucosa Neck: Supple, Trachea Midline, Thyroid Normal Size and Texture Lungs: Clear to auscultation, Normal air movement, No rhonchi, No wheeze Cardiovascular: Regular rate, Regular Rhythm, Normal S1, Normal S2, No murmurs Abdomen: Bowel Sounds Present, Soft, Non Tender, Non-Distended Extremities: No clubbing, No cyanosis, No edema, Capillary Refill Less than 3 Seconds Skin: No rashes, No breakdown Musculoskeletal: No Tenderness to Palpation of Joints or Extremities Neurological: Cranial nerves II-XII grossly intact, Neuro grossly intact, Sensory exam intact to light touch and pain Psych/Mental Status: Normal Affect, Appropriate Laboratory Results 09/12/19 05:30: Vitamin B12 630 09/12/19 20:56: POC Glucose 310 H 09/13/19 06:47: POC Glucose 184 H 09/13/19 11:19: POC Glucose 248 H 09/13/19 16:49: POC Glucose 275 H Current Medications Acetaminophen (Tylenol) 650 mg PO Q6H PRN PRN PRN Reason: Pain Score 1-10/Temp > 100.7 F Albuterol Sulfate (Ventolin Aerosols) 2.5 mg INHALATION Q2H PRN PRN PRN Reason: Shortness of Breath/Wheezing Last Admin: 09/13/19 15:10 Dose: 2.5 mg Documented by: Albuterol/Ipratropium (Duoneb) 3 ml INHALATION Q6HWA.RT [facility] Last Admin: 09/13/19 20:09 Dose: 3 ml Documented by: Aspirin (Ecotrin) 81 mg PO DAILY [facility] Last Admin: 09/13/19 08:06 Dose: 81 mg Documented by: Atorvastatin Calcium (Lipitor) 20 mg PO QHS [facility] Last Admin: 09/12/19 21:00 Dose: 20 mg Documented by: Cholecalciferol (Vitamin D) 1,000 unit PO DAILY [facility] Last Admin: 09/13/19 08:06 Dose: 1,000 unit Documented by: Famotidine (Pepcid) 20 mg PO BID [facility] Last Admin: 09/13/19 08:06 Dose: 20 mg Documented by: Glucagon () 1 mg IM .X1 PRN PRN Reason: Hypoglycemia Guaifenesin (Robitussin) 20 ml PO Q4H PRN PRN PRN Reason: COUGH Sodium Chloride () 250 mls @ 15 mls/hr IV .[id number] PRN PRN Reason: Saline Flush Dextrose (Dextrose 10%-Water) 250 mls @ 999 mls/hr IV .Q16M PRN; Protocol PRN Reason: HYPOGLYCEMIA Insulin Glargine (Lantus (Bkc)) 25 units SC BID [facility] Insulin Human Lispro (Humalog Kwikpen (Bkc)) 0 unit SC ACHS [facility]; Protocol Last Admin: 09/13/19 16:52 Dose: 4 units Documented by: Latanoprost (Xalatan Opthalmic) 1 drop EACH EYE DAILY [facility] Last Admin: 09/13/19 08:09 Dose: 1 drop Documented by: Lisinopril (Zestril) 2.5 mg PO DAILY [facility] Last Admin: 09/13/19 08:06 Dose: Not Given Documented by: Melatonin (Melatonin) 3 mg PO QHS PRN PRN PRN Reason: INSOMNIA Metformin HCl (Glucophage) 500 mg PO BIDCM [facility] Last Admin: 09/13/19 16:51 Dose: 500 mg Documented by: Nutritional Formula (Lactose Free) (Glucerna Shake) 120 ml PO 4X/DAY [facility] Last Admin: 09/13/19 16:51 Dose: 120 ml Documented by: Ondansetron HCl (Zofran) 4 mg IV Q8H PRN PRN PRN Reason: NAUSEA/VOMITING Senna/Docusate Sodium (Senokot-S, Wendie-Colace) 2 tablet PO BID PRN PRN PRN Reason: Constipation Sodium Chloride () 10 - 40 ml IV UD PRN PRN Reason: SALINE FLUSH Venlafaxine HCl (Effexor Xr) 75 mg PO DAILY [facility] Last Admin: 09/13/19 08:06 Dose: 75 mg Documented by: Medical Necessity - Tobacco Use Smoking Status: Former smoker Tobacco Use: Non-smoker Assessment/Plan All Active Problems Generalized weakness (Acute) Hyperglycemia (Acute) Failure to thrive (Acute) Scabies (Acute) #1 generalized debility-PT and OT will continue to see the patient, he will need skilled nursing placement #2 [id number] will need a guardian appointed sooner later, he will need placement in a residential facility #3 coronary artery disease #4 hyperlipidemia #5 suspected scabies #6 type 2 diabetes-patient was placed on metformin yesterday in addition to his basal insulin, I have increased his basal insulin today and will continue to monitor blood sugars. #7 iron deficiency anemia-patient was placed on ferrous sulfate 5 grains twice a day Code Visit OBSV E&M: 16720 Subsequent observation care L3
[2019-09-13] MEDS: Atorvastatin Calcium 20 MG Tablet PO (23:01)
[2019-09-13] MEDS: Acetaminophen 325 MG Tablet 650 MG PO (23:08)
[2019-09-13 23:16] LABS: Bedside Glucose 191 mg/dL (70-110)
[2019-09-14] VITALS (7 sets, daily range): BP systolic 101–135; BP diastolic 49–96; PULSE 68–104; RESP 14–18; TEMP 35.8–36.8; O2SAT 95–99
[2019-09-14 06:41] LABS: Bedside Glucose 121 mg/dL (70-110)
[2019-09-14] MEDS: Ipratropium/Albuterol Sulfate 3 ML AMPUL.NEB INHALATION ×3 (07:09→19:30)
[2019-09-14] MEDS: Glucerna Shake 120 ML LIQUID PO ×4 (09:01→22:02)
[2019-09-14] MEDS: Aspirin E.C. 81 MG Tablet PO (09:02)
[2019-09-14] MEDS: Venlafaxine XR 75 MG Capsule PO (09:02)
[2019-09-14] MEDS: metFORMIN HCl 500 MG Tablet PO ×2 (09:02→16:45)
[2019-09-14] MEDS: Famotidine 20 MG Tablet PO ×2 (09:02→22:01)
[2019-09-14] MEDS: Latanoprost 0.005% 1 Bottle 1 DRP EACH EYE (09:04)
--- NOTE | 2019-09-14 09:55 | CASEMGMT ---
WAYNE received a call from Shantal at [facility] and they are going to decline referral. WAYNE called Vanessa at [facility] as this was patient's second choice. Vanessa said they are full. She will call [facility] to see if she can get them to change their mind. Ira SHAFER
--- NOTE | 2019-09-14 10:27 | CASEMGMT ---
Case Management Progress Note: This writer editor to patient bedside, patient sleeping and easily aroused. Introduced self and role. Explained/reviewed SALINAS form with patient in regards to current treatment this hospital stay. Informed him Outpatient billing is determined by his insurance policy and continual review is conducted to determine in changes in condition that may warrant Inpatient stay. Patient acknowledges and states understanding, denies any questions or concerns with SALINAS form. Signed form which was placed in hard chart and provided a copy. Matt Wright RNCM
[2019-09-14 12:10] LABS: Bedside Glucose 308 mg/dL (70-110)
--- NOTE | 2019-09-14 12:35 | CASEMGMT ---
WAYNE received a call back from Vanessa at [facility] and she asked about patient's d/c plan from skilled nursing. WAYNE told her patient did have an appt to meet with Davina at [facility] regarding housing. WAYNE will follow up with her to see if she will follow while in the skilled nursing or if she won't get involved until he is discharged from the skilled nursing. WAYNE also told Vanessa he could possibly end up being a [facility] psychiatrist resident. She said they are discussing his case and will get back with WAYNE. WAYNE received a call from Nita at [facility] and their Medicaid specialist said they would need a new Medicaid application as he only has Medicaid QMB. He would also need to pay for the month up front as they do not know what his patient liability will be. WAYNE told her SW spoke with Ynes Huizar at [facility] and she said a new Medicaid application does not need completed. She sent WAYNE a resource list that needs completed and another form that patient will sign so they can verify information. She said she will let her Medicaid specialist know this information. Ira NUR MSW
[2019-09-14] MEDS: Ferrous Sulfate 325 MG Tablet PO ×2 (13:00→16:45)
[2019-09-14] MEDS: Insulin Lispro 100 UNIT/ML INSULN.PEN SC ×4 (13:00→22:01)
--- NOTE | 2019-09-14 14:35 | CASEMGMT ---
WAYNE received a call from Shantal with [facility] and they have reconsidered and decided to accept patient. WAYNE told her SW will work on getting a level of care. WAYNE thanked her for accepting patient. WAYNE let patient know that [facility] will now take him. AWYNE will work on getting appropriate paperwork completed so he can go to [facility]. Plan: [facility] under intermediate level of care on his Medicaid. Ira NUR MSW
--- NOTE | 2019-09-14 15:13 | PN_ITS ---
Patient Problems: Active and Suspected Problems Generalized weakness (Acute) Hyperglycemia (Acute) Failure to thrive (Acute) Scabies (Acute) Reason for Visit: Complains of cramping in left calf. Vitals/I&O's: Vital Signs Temp Pulse Resp BP Pulse Ox 36.3 C L 88 16 101/62 97 09/14/19 09:07 09/14/19 09:07 09/14/19 09:07 09/14/19 09:07 09/14/19 09:07 Oxygen Delivery Method Room Air Weight: 95.4 kg Body Mass Index (BMI) 30.2 Finger Stick Blood Glucose 303 Intake and Output for Last 24 Hours 09/12/19 09/13/19 09/14/19 23:59 23:59 23:59 Intake Total 1380 / 1880 2300 / 3320 1800 / 1800 Balance 1380 / 1880 2300 / 3320 1800 / 1800 General: Alert, No apparent distress HEENT: Atraumatic, Normocephalic Oral: Moist Mucosa, No Gingival or Mucosal Lesions/ Ulcerations Neck: No Nodes, Trachea Midline Lungs: Clear to auscultation, Normal air movement, No rhonchi, No wheeze Cardiovascular: Regular rate, Regular Rhythm, Normal S1, Normal S2, No murmurs Abdomen: Bowel Sounds Present, Soft, Non Tender, Non-Distended, No Hepato- splenomegaly Extremities: No edema, No Calf Tenderness Skin: No rashes, No breakdown Psych/Mental Status: Normal Affect, Appropriate Laboratory Results 09/13/19 16:49: POC Glucose 275 H 09/13/19 22:55: POC Glucose 191 H 09/14/19 06:31: POC Glucose 121 H 09/14/19 12:04: POC Glucose 308 H Current Medications Acetaminophen (Tylenol) 650 mg PO Q6H PRN PRN PRN Reason: Pain Score 1-10/Temp > 100.7 F Last Admin: 09/13/19 23:08 Dose: 650 mg Documented by: Albuterol Sulfate (Ventolin Aerosols) 2.5 mg INHALATION Q2H PRN PRN PRN Reason: Shortness of Breath/Wheezing Last Admin: 09/13/19 15:10 Dose: 2.5 mg Documented by: Albuterol/Ipratropium (Duoneb) 3 ml INHALATION Q6HWA.RT [facility] Last Admin: 09/14/19 13:50 Dose: 3 ml Documented by: Aspirin (Ecotrin) 81 mg PO DAILY [facility] Last Admin: 09/14/19 09:02 Dose: 81 mg Documented by: Atorvastatin Calcium (Lipitor) 20 mg PO QHS [facility] Last Admin: 09/13/19 23:01 Dose: 20 mg Documented by: Cholecalciferol (Vitamin D) 1,000 unit PO DAILY [facility] Last Admin: 09/14/19 09:02 Dose: 1,000 unit Documented by: Famotidine (Pepcid) 20 mg PO BID [facility] Last Admin: 09/14/19 09:02 Dose: 20 mg Documented by: Ferrous Sulfate (Ferrous Sulfate) 325 mg PO 1200,1700 [facility] Last Admin: 09/14/19 13:00 Dose: 325 mg Documented by: Glucagon () 1 mg IM .X1 PRN PRN Reason: Hypoglycemia Guaifenesin (Robitussin) 20 ml PO Q4H PRN PRN PRN Reason: COUGH Sodium Chloride () 250 mls @ 15 mls/hr IV .[id number] PRN PRN Reason: Saline Flush Dextrose (Dextrose 10%-Water) 250 mls @ 999 mls/hr IV .Q16M PRN; Protocol PRN Reason: HYPOGLYCEMIA Insulin Glargine (Lantus (Bkc)) 25 units SC 1100,2200 [facility] Last Admin: 09/14/19 13:01 Dose: 25 units Documented by: Insulin Human Lispro (Humalog Kwikpen (Bkc)) 0 unit SC ACHS [facility]; Protocol Last Admin: 09/14/19 13:00 Dose: 4 units Documented by: Latanoprost (Xalatan Opthalmic) 1 drop EACH EYE DAILY [facility] Last Admin: 09/14/19 09:04 Dose: 1 drop Documented by: Lisinopril (Zestril) 2.5 mg PO DAILY [facility] Last Admin: 09/13/19 08:06 Dose: Not Given Documented by: Melatonin (Melatonin) 3 mg PO QHS PRN PRN PRN Reason: INSOMNIA Metformin HCl (Glucophage) 500 mg PO BIDCM [facility] Last Admin: 09/14/19 09:02 Dose: 500 mg Documented by: Nutritional Formula (Lactose Free) (Glucerna Shake) 120 ml PO 4X/DAY [facility] Last Admin: 09/14/19 13:01 Dose: 120 ml Documented by: Ondansetron HCl (Zofran) 4 mg IV Q8H PRN PRN PRN Reason: NAUSEA/VOMITING Senna/Docusate Sodium (Senokot-S, Wendie-Colace) 2 tablet PO BID PRN PRN PRN Reason: Constipation Sodium Chloride () 10 - 40 ml IV UD PRN PRN Reason: SALINE FLUSH Venlafaxine HCl (Effexor Xr) 75 mg PO DAILY [facility] Last Admin: 09/14/19 09:02 Dose: 75 mg Documented by: Medical Necessity - Tobacco Use Smoking Status: Former smoker Tobacco Use: Non-smoker Assessment/Plan All Active Problems Generalized weakness (Acute) Hyperglycemia (Acute) Failure to thrive (Acute) Scabies (Acute) Assessment 1. failure to thrive 2. DM2, uncontrolled and elevated. A1c 8.1 3. scabies 4. left calf pain Plan: 1. check D-dimer, and if greater than 0.73, check duplex 2. continue glargine 25 bid for now, start scheduled prandial insulin. 3. start VTE prophylaxis given increasing length of hospitalization. 4. awaiting on Medicaid number so that he may go to SNF. Code Visit OBSV E&M: 96922 Subsequent observation care L2
[2019-09-14 16:42] LABS: D-Dimer Quantitative (DVT/PE) 0.78 FEU/ug/m (0.27-0.49)
[2019-09-14] MEDS: Enoxaparin 40 MG/0.4 ML Syringe SC (16:46)
--- NOTE | 2019-09-14 16:46 | VDLE_ITS ---
Reason For Study: PAIN Procedure LEFT Exam performed portable in patient room. GSV is normal. A preliminary report was called and/or faxed CFV is compressible, spontaneous, phasic, to PCU. competent, and demonstrates normal augmentation. FV is compressible, spontaneous, phasic, competent and demonstrates normal augmentation. T/P Trunk is compressible. PTV is compressible. LT PerV is compressible. LT POPV is PARTIALLY COMPRESSIBLE and has echoes consistent with chronic thrombus LT GastrocV is NONCOMPRESSIBLE and has echoes consistent with chronic thrombus. Interpretation Summary Chronic venous changes are noted in the left popliteal vein and gastrocnemius vein. The remainder of the left lower extremity deep venous system is patent and compressible. The left common femoral vein and femoral vein are competent. The left great saphenous vein appears patent and compressible segmentally. Ordering Physician: Valentino Ponce Performed By: Natalie Jones, LM, RVT
[2019-09-14 17:03] LABS: Vitamin D,25 Hydroxy 24.3 ng/mL (29.95-100.01)
[2019-09-14 17:10] LABS: Bedside Glucose 218 mg/dL (70-110)
[2019-09-14] MEDS: Atorvastatin Calcium 20 MG Tablet PO (22:01)
[2019-09-14 22:16] LABS: Bedside Glucose 193 mg/dL (70-110)
[2019-09-15 02:02] VITALS: BP 106/67; PULSE 71; RESP 16; TEMP 36.4; O2SAT 98
[2019-09-15] MEDS: Enoxaparin 40 MG/0.4 ML Syringe SC (05:14)
[2019-09-15 07:25] VITALS: PULSE 102; RESP 20; O2SAT 97
[2019-09-15] MEDS: Ipratropium/Albuterol Sulfate 3 ML AMPUL.NEB INHALATION ×2 (07:25→13:19)
[2019-09-15 08:02] VITALS: BP 108/74; PULSE 79; RESP 18; TEMP 36.5; O2SAT 97
[2019-09-15] MEDS: Aspirin E.C. 81 MG Tablet PO (08:08)
[2019-09-15] MEDS: metFORMIN HCl 500 MG Tablet PO ×2 (08:08→16:11)
[2019-09-15] MEDS: Lisinopril 2.5 MG Tablet PO (08:08)
[2019-09-15] MEDS: Venlafaxine XR 75 MG Capsule PO (08:09)
[2019-09-15] MEDS: Latanoprost 0.005% 1 Bottle 1 DRP EACH EYE (08:09)
[2019-09-15] MEDS: Famotidine 20 MG Tablet PO ×2 (08:09→22:33)
[2019-09-15] MEDS: Insulin Lispro 100 UNIT/ML INSULN.PEN SC ×5 (08:10→22:34)
[2019-09-15] MEDS: Senna/Docusate Sodium 1 Tablet 2 TABLET PO (08:16)
[2019-09-15] MEDS: Glucerna Shake 120 ML LIQUID PO ×4 (08:16→22:45)
[2019-09-15 08:35] LABS: Bedside Glucose 118 mg/dL (70-110)
--- NOTE | 2019-09-15 09:48 | PCM.TXEXTCAR ---
- Diet 09/11/19 22:05 Diet: Calorie Controlled Food consistency:: Regular Liquid Consistency:: Regular/Thin How many daily calories?: 1800 calorie - Routine Orders/Code Status Code Status: Full Code - Therapies Weight Bearing: Full weight bearing Physical Therapy: Eval and Treat Occupational Therapy: Eval and Treat - Allergies/Procedures Done in Hospital Allergies/Adverse Reactions: Allergies adhesive tape Adverse Reaction (Verified 09/11/19 15:42) Rash tomato Adverse Reaction (Verified 08/14/19 19:32) Rash - Type of Care/Length of Stay Estimated LOS: Convalescent Care Less Than 30 days Type of Care Needed: Skilled Rehab Potential: Fair Prognosis: Fair - Additional Orders/Day of Discharge Day of Discharge: 09/15/19 - Dietary and Speech Recommendations Dietitian Recommendations/Changes: Will provide pt CHO controlled diet and will continue ONS mey aparicio at [facility]. - Follow Up Care Primary Care Physician: Valentino Morris MD [STAFF PHYSICIAN] - Nehemiah Arauz MD [STAFF PHYSICIAN] -
--- NOTE | 2019-09-15 10:58 | CASEMGMT ---
WAYNE completed PASRR and obtained all information to obtain a level of care from [facility]. WAYNE asked patient about his mental health. He confirms he does have a mental health diagnosis, but cannot specify. He said he has been to a hospital for his mental health in the past, but he thinks it has been more than 2 years. All information was faxed to [facility] to obtain a level of care. WAYNE also spoke with Davina at [facility] and she asked that Nate call her and arrange a time for her to come and see patient to work on housing before he is discharged from SNF. WAYNE will pass this along to [facility]. Ira NUR MSW
[2019-09-15] MEDS: Ferrous Sulfate 325 MG Tablet PO ×2 (11:27→16:11)
[2019-09-15 11:50] LABS: Bedside Glucose 205 mg/dL (70-110)
[2019-09-15 13:19] VITALS: PULSE 101; RESP 20
--- NOTE | 2019-09-15 14:20 | PCM.PN.HOSP ---
Patient Problems: Active and Suspected Problems Generalized weakness (Acute) Hyperglycemia (Acute) Failure to thrive (Acute) Scabies (Acute) Reason for Visit: FTT Subjective: Still with left calf pain. Vitals/I&O's: Vital Signs Temp Pulse Resp BP Pulse Ox 36.5 C L 79 18 108/74 97 09/15/19 08:02 09/15/19 08:02 09/15/19 08:02 09/15/19 08:02 09/15/19 08:02 Oxygen Delivery Method Room Air Weight: 95.4 kg Body Mass Index (BMI) 30.2 Finger Stick Blood Glucose 303 Intake and Output for Last 24 Hours 09/13/19 09/14/19 09/15/19 23:59 23:59 23:59 Intake Total 2300 / 3320 2160 / 2160 360 / 360 Balance 2300 / 3320 2160 / 2160 360 / 360 General: Alert, No apparent distress HEENT: Atraumatic Oral: Moist Mucosa, No Gingival or Mucosal Lesions/ Ulcerations Neck: No Nodes, Trachea Midline Extremities: No edema Psych/Mental Status: Normal Affect, Appropriate Laboratory Results 09/14/19 16:00: D-Dimer Quant (PE/DVT) 0.78 H* 09/14/19 16:00: Vitamin D 25-Hydroxy 24.3 L 09/14/19 16:39: POC Glucose 218 H 09/14/19 22:00: POC Glucose 193 H 09/15/19 08:07: POC Glucose 118 H 09/15/19 11:20: POC Glucose 205 H Current Medications Acetaminophen (Tylenol) 650 mg PO Q6H PRN PRN PRN Reason: Pain Score 1-10/Temp > 100.7 F Last Admin: 09/13/19 23:08 Dose: 650 mg Documented by: Albuterol Sulfate (Ventolin Aerosols) 2.5 mg INHALATION Q2H PRN PRN PRN Reason: Shortness of Breath/Wheezing Last Admin: 09/13/19 15:10 Dose: 2.5 mg Documented by: Albuterol/Ipratropium (Duoneb) 3 ml INHALATION Q6HWA.RT [facility] Last Admin: 09/15/19 13:19 Dose: 3 ml Documented by: Aspirin (Ecotrin) 81 mg PO DAILY [facility] Last Admin: 09/15/19 08:08 Dose: 81 mg Documented by: Atorvastatin Calcium (Lipitor) 20 mg PO QHS [facility] Last Admin: 09/14/19 22:01 Dose: 20 mg Documented by: Cholecalciferol (Vitamin D) 1,000 unit PO DAILY [facility] Last Admin: 09/15/19 08:09 Dose: 1,000 unit Documented by: Enoxaparin Sodium (Lovenox) 40 mg SC DAILY@0600 [facility] Last Admin: 09/15/19 05:14 Dose: 40 mg Documented by: Famotidine (Pepcid) 20 mg PO BID [facility] Last Admin: 09/15/19 08:09 Dose: 20 mg Documented by: Ferrous Sulfate (Ferrous Sulfate) 325 mg PO 1200,1700 [facility] Last Admin: 09/15/19 11:27 Dose: 325 mg Documented by: Glucagon () 1 mg IM .X1 PRN PRN Reason: Hypoglycemia Guaifenesin (Robitussin) 20 ml PO Q4H PRN PRN PRN Reason: COUGH Sodium Chloride () 250 mls @ 15 mls/hr IV .[id number] PRN PRN Reason: Saline Flush Dextrose (Dextrose 10%-Water) 250 mls @ 999 mls/hr IV .Q16M PRN; Protocol PRN Reason: HYPOGLYCEMIA Insulin Glargine (Lantus (Bkc)) 25 units SC 1100,2200 [facility] Last Admin: 09/15/19 11:22 Dose: 25 units Documented by: Insulin Human Lispro (Humalog Kwikpen (Bkc)) 0 unit SC ACHS [facility]; Protocol Last Admin: 09/15/19 11:21 Dose: 2 units Documented by: Insulin Human Lispro (Humalog Kwikpen (Bkc)) 5 unit SC TIDAC [facility] Last Admin: 09/15/19 11:21 Dose: 5 units Documented by: Latanoprost (Xalatan Opthalmic) 1 drop EACH EYE DAILY [facility] Last Admin: 09/15/19 08:09 Dose: 1 drop Documented by: Lisinopril (Zestril) 2.5 mg PO DAILY [facility] Last Admin: 09/15/19 08:08 Dose: 2.5 mg Documented by: Melatonin (Melatonin) 3 mg PO QHS PRN PRN PRN Reason: INSOMNIA Metformin HCl (Glucophage) 500 mg PO BIDCM [facility] Last Admin: 09/15/19 08:08 Dose: 500 mg Documented by: Nutritional Formula (Lactose Free) (Glucerna Shake) 120 ml PO 4X/DAY [facility] Last Admin: 09/15/19 13:43 Dose: 120 ml Documented by: Ondansetron HCl (Zofran) 4 mg IV Q8H PRN PRN PRN Reason: NAUSEA/VOMITING Senna/Docusate Sodium (Senokot-S, Wendie-Colace) 2 tablet PO BID PRN PRN PRN Reason: Constipation Last Admin: 09/15/19 08:16 Dose: 2 tablet Documented by: Sodium Chloride () 10 - 40 ml IV UD PRN PRN Reason: SALINE FLUSH Venlafaxine HCl (Effexor Xr) 75 mg PO DAILY [facility] Last Admin: 09/15/19 08:09 Dose: 75 mg Documented by: Medical Necessity - Tobacco Use Smoking Status: Former smoker Tobacco Use: Non-smoker Assessment/Plan All Active Problems Generalized weakness (Acute) Hyperglycemia (Acute) Failure to thrive (Acute) Scabies (Acute) Assessment 1. failure to thrive 2. DM2, uncontrolled and elevated. A1c 8.1 3. scabies 4. left calf pain Plan: 1. check duplex 2. continue glargine 25 bid for now, start scheduled prandial insulin. 3. enoxaparin for VTE prophylaxis. 4. awaiting on Medicaid number so that he may go to SNF. Code Visit Inpatient E&M: 13605 [facility] L1
[2019-09-15 14:30] VITALS: BP 103/68; PULSE 84; RESP 18; TEMP 36.8; O2SAT 96
--- NOTE | 2019-09-15 14:33 | CASEMGMT ---
WAYNE called [facility] and confirmed they did receive 's request for level of care. WAYNE notified Nate that is still waiting level of care. Ira NUR MSW
[2019-09-15 16:25] LABS: Bedside Glucose 146 mg/dL (70-110)
[2019-09-15] MEDS: Atorvastatin Calcium 20 MG Tablet PO (22:33)
[2019-09-15 22:35] VITALS: BP 110/71; PULSE 71; RESP 16; TEMP 36.8; O2SAT 97
--- NOTE | 2019-09-15 22:54 | NURSING ---
pt iv site dc due to tender, warm compress applied. pt requests no new iv start
[2019-09-15 23:11] LABS: Bedside Glucose 217 mg/dL (70-110)
[2019-09-16 02:36] VITALS: BP 103/68; PULSE 73; RESP 16; TEMP 36.6; O2SAT 100
[2019-09-16] MEDS: Enoxaparin 40 MG/0.4 ML Syringe SC (05:21)
[2019-09-16] MEDS: Ipratropium/Albuterol Sulfate 3 ML AMPUL.NEB INHALATION (07:20)
[2019-09-16 07:22] VITALS: PULSE 64; RESP 16; O2SAT 98
[2019-09-16 09:00] VITALS: BP 94/64; PULSE 73; RESP 16; TEMP 36.4; O2SAT 93
[2019-09-16] MEDS: Insulin Lispro 100 UNIT/ML INSULN.PEN SC (09:10)
[2019-09-16] MEDS: Venlafaxine XR 75 MG Capsule PO (09:11)
[2019-09-16] MEDS: metFORMIN HCl 500 MG Tablet PO (09:11)
[2019-09-16] MEDS: Aspirin E.C. 81 MG Tablet PO (09:11)
[2019-09-16] MEDS: Famotidine 20 MG Tablet PO (09:12)
[2019-09-16] MEDS: Latanoprost 0.005% 1 Bottle 1 DRP EACH EYE (09:12)
[2019-09-16] MEDS: Glucerna Shake 120 ML LIQUID PO (09:12)
[2019-09-16 09:31] LABS: Bedside Glucose 131 mg/dL (70-110)
--- NOTE | 2019-09-16 10:14 | DS.PCM_ITS ---
Discharge Date and Diagnosis - Problem List Patient Problems: Active and Suspected Problems Generalized weakness (Acute) Hyperglycemia (Acute) Failure to thrive (Acute) Scabies (Acute) Date of Admission: 09/11/19 Date of Discharge: 09/16/19 - Primary Discharge Diagnosis Active and Suspected Problems 1. failure to thrive 2. DM2, uncontrolled and elevated. A1c 8.1 3. scabies - Secondary Discharge Diagnosis Chronic Problems Hypertension (Chronic) High cholesterol (Chronic) Diabetes (Chronic) CAD (coronary artery disease) (Chronic) Former tobacco use (Chronic) Hospital Course and Treatment Summary of Care Provided: The patient is a 73 year old M presents with neurolysed weakness and inability to care for himself. Patient underwent a work-up that was significant for hyperglycemia. Patient is a known diabetic but has not been doing proper self- care. So patient was brought in, received permethrin for the scabies. His diabetes medications were adjusted to obtain proper glycemic control which has helped. Patient did have a hemoglobin A1c of 8.1. Patient his hospitalization was longer than would be expected given the fact that patient had no insurance and had to get a Medicaid number prior to discharge. Patient 5 will be able to be discharged today to [facility] in stable condition.] Patient Problems: Active and Suspected Problems Generalized weakness (Acute) Hyperglycemia (Acute) Failure to thrive (Acute) Scabies (Acute) - Physical Exam Vitals/I&O's: Vital Signs Temp Pulse Resp BP Pulse Ox 36.4 C L 73 16 94/64 93 09/16/19 09:00 09/16/19 09:00 09/16/19 09:00 09/16/19 09:00 09/16/19 09:00 Oxygen Delivery Method Room Air Weight: 95.4 kg Body Mass Index (BMI) 30.2 Finger Stick Blood Glucose 303 Intake and Output for Last 24 Hours 09/14/19 09/15/19 09/16/19 23:59 23:59 23:59 Intake Total 2160 / 2160 1260 / 1260 Balance 2160 / 2160 1260 / 1260 General: Alert, Cooperative, No apparent distress HEENT: Atraumatic, Normocephalic Oral: Moist Mucosa, No Gingival or Mucosal Lesions/ Ulcerations Neck: Thyroid Normal Size and Texture Extremities: No edema, No Calf Tenderness Laboratory Results 09/15/19 11:20: POC Glucose 205 H 09/15/19 16:10: POC Glucose 146 H 09/15/19 22:32: POC Glucose 217 H 09/16/19 09:03: POC Glucose 131 H Current Medications Acetaminophen (Tylenol) 650 mg PO Q6H PRN PRN PRN Reason: Pain Score 1-10/Temp > 100.7 F Last Admin: 09/13/19 23:08 Dose: 650 mg Documented by: Albuterol Sulfate (Ventolin Aerosols) 2.5 mg INHALATION Q2H PRN PRN PRN Reason: Shortness of Breath/Wheezing Last Admin: 09/13/19 15:10 Dose: 2.5 mg Documented by: Albuterol/Ipratropium (Duoneb) 3 ml INHALATION Q6HWA.RT [facility] Last Admin: 09/16/19 07:20 Dose: 3 ml Documented by: Aspirin (Ecotrin) 81 mg PO DAILY [facility] Last Admin: 09/16/19 09:11 Dose: 81 mg Documented by: Atorvastatin Calcium (Lipitor) 20 mg PO QHS [facility] Last Admin: 09/15/19 22:33 Dose: 20 mg Documented by: Cholecalciferol (Vitamin D) 1,000 unit PO DAILY [facility] Last Admin: 09/16/19 09:12 Dose: 1,000 unit Documented by: Enoxaparin Sodium (Lovenox) 40 mg SC DAILY@0600 [facility] Last Admin: 09/16/19 05:21 Dose: 40 mg Documented by: Famotidine (Pepcid) 20 mg PO BID [facility] Last Admin: 09/16/19 09:12 Dose: 20 mg Documented by: Ferrous Sulfate (Ferrous Sulfate) 325 mg PO 1200,1700 [facility] Last Admin: 09/15/19 16:11 Dose: 325 mg Documented by: Glucagon () 1 mg IM .X1 PRN PRN Reason: Hypoglycemia Guaifenesin (Robitussin) 20 ml PO Q4H PRN PRN PRN Reason: COUGH Sodium Chloride () 250 mls @ 15 mls/hr IV .[id number] PRN PRN Reason: Saline Flush Dextrose (Dextrose 10%-Water) 250 mls @ 999 mls/hr IV .Q16M PRN; Protocol PRN Reason: HYPOGLYCEMIA Insulin Glargine (Lantus (Bkc)) 25 units SC 1100,2200 [facility] Last Admin: 09/15/19 22:34 Dose: 25 units Documented by: Insulin Human Lispro (Humalog Kwikpen (Bkc)) 0 unit SC ACHS [facility]; Protocol Last Admin: 09/16/19 09:11 Dose: Not Given Documented by: Insulin Human Lispro (Humalog Kwikpen (Bkc)) 5 unit SC TIDAC [facility] Last Admin: 09/16/19 09:10 Dose: 5 units Documented by: Latanoprost (Xalatan Opthalmic) 1 drop EACH EYE DAILY [facility] Last Admin: 09/16/19 09:12 Dose: 1 drop Documented by: Lisinopril (Zestril) 2.5 mg PO DAILY [facility] Last Admin: 09/15/19 08:08 Dose: 2.5 mg Documented by: Melatonin (Melatonin) 3 mg PO QHS PRN PRN PRN Reason: INSOMNIA [facility]) [facility] Last Admin: 09/16/19 09:11 Dose: 500 mg Documented by: Nutritional Formula (Lactose Free) (Glucerna Shake) 120 ml PO 4X/DAY [facility] Last Admin: 09/16/19 09:12 Dose: 120 ml Documented by: Ondansetron HCl (Zofran) 4 mg IV Q8H PRN PRN PRN Reason: NAUSEA/VOMITING Senna/Docusate Sodium (Senokot-S, Wendie-Colace) 2 tablet PO BID PRN PRN PRN Reason: Constipation Last Admin: 09/15/19 08:16 Dose: 2 tablet Documented by: Sodium Chloride () 10 - 40 ml IV UD PRN PRN Reason: SALINE FLUSH Venlafaxine HCl (Effexor Xr) 75 mg PO DAILY [facility] Last Admin: 09/16/19 09:11 Dose: 75 mg Documented by: Discharge Diet: No Restrictions Discharge Activity: Return to Normal Activity Home Medications: Medications to take at Discharge Aspirin [Aspir 81] 81 mg PO DAILY 06/23/19 Lisinopril 2.5 mg PO DAILY 08/14/19 Simvastatin 40 mg PO DAILY 08/14/19 Albuterol Inhaler [Ventolin Hfa] 2 puff INHALATION BID PRN PRN 09/11/19 Benzonatate [Tessalon Perle] 100 mg PO TID PRN PRN 09/11/19 Cetirizine HCl [Allergy Relief] 10 mg PO DAILY 09/11/19 Cholecalciferol (VIT D3) [Vitamin D3] 1,000 unit PO DAILY 09/11/19 Latanoprost 2.5 ml OP DAILY 09/11/19 Umeclidinium [place] [Incruse Ellipta] 62.5 mcg IH DAILY 09/11/19 Venlafaxine HCl [Effexor Xr] 75 mg PO DAILY 09/11/19 Ergocalciferol [Vitamin D] 50,000 unit PO Q7D #8 cap 09/16/19 Insulin Glargine [Lantus SoloStar Pen] 25 units SUBCUT 1100,2200 pen 09/16/19 Insulin Lispro [Humalog KwikPen] 5 unit SUBCUT TIDAC insuln.pen 09/16/19 Insulin Lispro [Humalog KwikPen] See Protocol SUBCUT ACHS insuln.pen 09/16/19 Senna/Docusate Sodium [Senokot-S] 2 tab PO BID PRN PRN tab 09/16/19 metFORMIN HCl [Glucophage] 500 mg PO BIDCM tab 09/16/19 Following Prescrptions Were Given to Patient: Ergocalciferol [Vitamin D] 50,000 unit PO Q7D #8 cap Primary Care Physician: Nehemiah Arauz MD [STAFF PHYSICIAN] - Valentino Morris MD [STAFF PHYSICIAN] - Within 2 Weeks Patient Instructions: ED Diabetic Hyperglycemia, WEAKNESS, Unk Cause Disposition: Jail facility Minutes spent on discharge:: 28 Patient Condition:: Good Medical Necessity - Tobacco Use Smoking Status: Former smoker Tobacco Use: Non-smoker Meaningful Use Info Meaningful Use Diagnoses (Choose all that apply): None applicable Code Visit Inpatient E&M: 60179 Disch Hosp
--- NOTE | 2019-09-16 10:34 | CASEMGMT ---
SW received level of care from [facility]. SW notified physician. SW called [facility] and arranged for patient to get picked up at 1p via [facility]. WAYNE notified Nate, patient, RN, physician, and construction secretary. WAYNE completed PASRR on [facility]. WAYNE also passed along to Shantal and Marc at [facility] to call Davina at [facility] and she said she will come in and meet with patient about housing. SW also let patient know this information. Plan: Nate under intermediate level of care on a PASRR as he is observation status. [facility] transported him via [facility]oke. Ira NUR SCRATCH POLISHER
[2019-09-16 11:15] VITALS: BP 107/69; PULSE 115; RESP 16; TEMP 36.3; O2SAT 95
--- NOTE | 2019-09-16 11:16 | PHA.DC.MR ---
Pharmacy Service has performed discharge medication reconciliation for this patient upon transfer to [facility]. The patient's discharge medication list was reviewed for discrepancies and discrepancies were resolved. Home Medications Aspirin [Aspir 81] 81 mg PO DAILY 06/23/19 Lisinopril 2.5 mg PO DAILY 08/14/19 Simvastatin 40 mg PO DAILY 08/14/19 Albuterol Inhaler [Ventolin Hfa] 2 puff INHALATION BID PRN PRN 09/11/19 Benzonatate [Tessalon Perle] 100 mg PO TID PRN PRN 09/11/19 Cetirizine HCl [Allergy Relief] 10 mg PO DAILY 09/11/19 Cholecalciferol (VIT D3) [Vitamin D3] 1,000 unit PO DAILY 09/11/19 Latanoprost 2.5 ml OP DAILY 09/11/19 Umeclidinium [place] [Incruse Ellipta] 62.5 mcg IH DAILY 09/11/19 Venlafaxine HCl [Effexor Xr] 75 mg PO DAILY 09/11/19 Ergocalciferol [Vitamin D] 50,000 unit PO Q7D #8 cap 09/16/19 Insulin Glargine [Lantus SoloStar Pen] 25 units SUBCUT 1100,2200 pen 09/16/19 Insulin Lispro [Humalog KwikPen] 5 unit SUBCUT TIDAC insuln.pen 09/16/19 Insulin Lispro [Humalog KwikPen] See Protocol SUBCUT ACHS insuln.pen 09/16/19 Senna/Docusate Sodium [Senokot-S] 2 tab PO BID PRN PRN tab 09/16/19 metFORMIN HCl [Glucophage] 500 mg PO BIDCM tab 09/16/19
[2019-09-16] MEDS: Ferrous Sulfate 325 MG Tablet PO (12:11)
[2019-09-16 12:21] LABS: Bedside Glucose 282 mg/dL (70-110)
--- NOTE | 2019-09-16 12:50 | NURSING ---
Addendum entered by Anna Carrera 09/16/19 13:10: lunch was not delivered to patient prior to DC, called [facility] and requested they save a lunch option for pt. they agreed and patient aware Original Note: report called to Norma at [facility]
== END 2019-09-16 10:13 | disposition skilled nursing facility (03) ==
LOC: ED 20:57 → PCU 21:11
PROVIDERS: Internal Medicine; Admitting Provider Family Medicine; Emergency Provider Emergency Medicine
DX: R53.1 Weakness (principal); E11.65 Type 2 diabetes mellitus with hyperglycemia; R62.7 Adult failure to thrive; B86 Scabies; R31.9 Hematuria, unspecified; I10 Essential (primary) hypertension; I25.10 Atherosclerotic heart disease of native coronary artery without angina pectoris; F41.9 Anxiety disorder, unspecified; F32.9 Major depressive disorder, single episode, unspecified; E78.5 Hyperlipidemia, unspecified; I25.2 Old myocardial infarction; E66.9 Obesity, unspecified; D53.9 Nutritional anemia, unspecified; D50.9 Iron deficiency anemia, unspecified; J44.9 Chronic obstructive pulmonary disease, unspecified; B35.1 Tinea unguium; M79.675 Pain in left toe(s); M79.674 Pain in right toe(s); Z87.891 Personal history of nicotine dependence; Z59.0 Homelessness; Z79.899 Other long term (current) drug therapy; Z79.82 Long term (current) use of aspirin; Z79.84 Long term (current) use of oral hypoglycemic drugs; Z91.14 Patient's other noncompliance with medication regimen
CPT/HCPCS: 36415; 80048; 81001; 82306; 82607; 82728; 82746; 82962; 83036; 83540; 83550; 83735; 85025; 85379; 93971; 94640; 96360; 96361; 96372; 97161; 97166; 99218; 99251; 99285; J7030; A4216; G0378; G0463

== ENCOUNTER → 2019-10-25 11:09 | Outpatient (CLI) | payer MEDICARE, SELFPAY | PROVIDERS: Referring Provider Nurse Practitioner Adult Health; Visit Provider Nurse Practitioner Adult Health | DX: R50.9 Fever, unspecified (principal); R05 Cough; R06.02 Shortness of breath | CPT/HCPCS: 87633; 87635; U0004 ==

== ENCOUNTER 2019-11-12 16:12 | Observation (INO) | payer MEDICARE, SELFPAY ==
[2019-11-12] VITALS (7 sets, daily range): BP systolic 123–145; BP diastolic 69–88; PULSE 67–90; RESP 16–22; TEMP 36.6–36.7; O2SAT 94–98; BMI 31.3; BMI 30.2
--- NOTE | 2019-11-12 16:18 | EKG12_ITS ---
Test Reason : SOB Blood Pressure : / mmHG Vent. Rate : 076 BPM Atrial Rate : 076 BPM P-R Int : 182 ms QRS Dur : 090 ms QT Int : 394 ms P-R-T Axes : 031 047 055 degrees QTc Int : 443 ms Normal sinus rhythm Normal ECG Confirmed by LUIS MIGUEL BENTLEY, ARLEY ([id number]), supervising editor news reel KHUSHBOO ADAMS ([id number]) on 11/16/2019 9:00:33 AM Referred By: JHON Confirmed By:ARLEY BOLANOS MD
--- NOTE | 2019-11-12 16:37 | ED.RN ---
brother has left a new contact number. [facility] . ericka gold rn [phone]
--- NOTE | 2019-11-12 16:45 | RAD_ITS ---
STUDY: X-RAY CHEST REASON FOR EXAM: Male, 73 years old. Known COVID, increased shortness of breath TECHNIQUE: 2 AP portable views COMPARISON: None. FINDINGS: EKG leads overlie the chest. Lungs are expanded with diffuse patchy airspace opacifications both lung gomez consistent with atypical pneumonia. According to the history sheet, this is a known Covid patient. There is no demonstrated pleural abnormality. Normal size heart. Normal mediastinum and earnest. Normal visualized pulmonary arteries. There is atherosclerotic calcification of the aortic arch with tortuosity. There are diffuse degenerative changes of the visualized thoracic spine. Normal visualized ribs, clavicles, and shoulders. There is no demonstrated abnormality of the visualized soft tissue structures of the upper abdomen. RAD/Chest 1 View (Portable) IMPRESSION: Diffuse patchy airspace opacifications in both lung gomez without effusions. Findings are consistent with atypical pneumonia and Covid. Follow-up recommended to assure resolution Degenerative bony changes Electronically Signed: Neftaly Paredes MD at 17:14 EDT , Service support ,
[2019-11-12] MEDS: 0.9% Normal Saline 1,000 ML 150 ML IV (16:54)
[2019-11-12 18:10] LABS: Absolute Lymphocyte Count 1.48 X10^3/uL (0.83-4.51); Absolute Neutrophil Count 3.6 X10^3/uL (2.0-7.7); Basophil# 0.01 X10^3/uL; Basophil% 0.2 % (0-1); Eosinophil# 0.05 X10^3/uL; Eosinophils% 0.8 % (0-5); Hematocrit 38.5 % (40-54); Hemoglobin 12.3 g/dL (13.0-16.5); Lymphocyte # 1.48 X10^3/ul (4.0); Lymphocyte % 23.3 % (19-41); Mean Corp Hgb Conc 31.9 g/dL (32-36); Mean Corpuscular Hgb 30.4 pg (27.0-32.0); Mean Corpuscular Volume 95.1 fL (80-94); Mean Platelet Vol. 10.6 fl (6.2-12.0); Monocyte# 1.14 X10^3/uL; Monocyte% 17.9 % (0-10); NRBC Flagged by Analyzer 0 % (0-5); Neutrophil # 3.63 X10^3/uL (2.7-7.7); Platelet Count 206 K/mm3 (150-450); RBC Distribution Width CV 14.6 % (11.6-14.6); RBC Distribution Width SD 48.9 fl (35.1-43.9); Red Blood Count 4.05 M/mm3 (4.6-6.2); White Blood Count 6.4 K/mm3 (4.4-11.0)
[2019-11-12 19:02] LABS: Lactic Acid 1.1 mmol/L (0.4-1.9)
--- NOTE | 2019-11-12 19:08 | ED.VISSUMM ---
- ER Visit Summary Date of Service: 11/12/19 Chief Complaint: Dyspnea and hypoxemia [] History of Present Illness: The patient is a 73 M [resents to the emergency department from halfway with complaint of low pulse ox today. Patient was diagnosed with COVID nineteen 1 week ago. Patient currently on Zithromax. Patient on 3 L nasal cannula at halfway and his O2 sats have been in the low 80s. Patient does complain of a cough and at times bringing up some green sputum. He denies recent fevers. Denies any chest pain. Patient has history of diabetes, hypertension, high cholesterol, and coronary artery disease.] Physical Examination: [HEENT-PERRLA, EOMI. Cranial nerves II through XII grossly intact. TMs clear. Mucous membranes moist. No adenopathy. Cardiovascular-regular rate and rhythm without murmur or ectopy Lungs-breath sounds bilaterally. Mild tachypnea. No sensory muscle use or retractions. Abdomen-normoactive bowel sounds, soft, nontender, no rebound or rigidity, no peritoneal signs. Extremities-intact ?4, normal range of motion, normal pulses, atraumatic] Test Results: [EKG obtained arrival shows sinus rhythm with a ventricular rate of 76 bpm with no acute ST segment changes. CBC with differential showed a white count 6.9, hemoglobin 12, hematocrit 38, placed 206. Lactate was 1.1. Chemistries pending.] Emergency Department Course and Treatment: [Started on Zosyn and Vanco IV.] Treatment Plan: [Patient's O2 sat on 3 L in the department is been in the 90s. Given patient's multiple comorbidities and history of desaturations at [facility] will admit for further monitoring.] Disposition: [Admit] Impression: [COVID 19 pneumonia Hypoxemia Dyspnea] This note was generated with [employer] dictation software. It may contain incorrect words, spelling, and punctuation that were not noted in review of the chart prior to signing ED Disposition - Plan for ED Patient: Referrals: Darwin Le MD [Primary Care Provider] -
[2019-11-12 19:10] LABS: Anion Gap 3 (5-15); BUN 12 mg/dL (7-18); BUN/Creat Ratio 16.7 RATIO (10-20); Chloride 104 mmol/L (98-107); Creatinine, Serum 0.72 mg/dL (0.70-1.30); EST Glomerular Filtration Rate 114 mL/min (>60); Est Glom Filt Rate - Afr Amer 138 mL/min (>60); Estimated Creatinine Clearance 65.79 ml/min; Glucose 110 mg/dL (74-106); Potassium 5.1 mmol/L (3.5-5.1); Sodium Level 139 mmol/L (136-145)
--- NOTE | 2019-11-12 19:27 | PCM.HP.STD ---
History of Present Illness Date of Admission: 11/12/19 Chief Complaint: Transient hypoxia The patient is a 73 year old M with a PMH as below who presents from [facility] with transient hypoxia. He is a COVID positive patient who is on 3 L at baseline and throughout the day today kept dropping into the low 80s so he was sent in as a precaution. Currently here in the ER he is 98% on his 3 L and is not tachycardic or septic in any way. Chest x-ray did show bibasilar infiltrates versus atelectasis. He tested positive for COVID about a week ago and was started on azithromycin for the last few days. He has no fevers and no leukocytosis however he was given a dose of Zosyn and vancomycin to cover for possible bacterial infection. He is currently denying any shortness of breath, cough, fever, lightheadedness or dizziness, or chest pain. Past Medical History Past Medical History (Chronic Problems): Chronic Problems Hypertension (Chronic) High cholesterol (Chronic) Diabetes (Chronic) CAD (coronary artery disease) (Chronic) Former tobacco use (Chronic) Allergies adhesive tape Adverse Reaction (Verified 11/12/19 16:13) Rash tomato Adverse Reaction (Verified 11/12/19 16:13) Rash Home Medications: Ambulatory Orders Medication Instructions Recorded Aspirin [Aspir 81] 81 mg PO DAILY 06/23/19 Simvastatin 40 mg PO QHS 08/14/19 Albuterol Inhaler [Ventolin Hfa] 2 puff INHALATION BID PRN PRN 09/11/19 Cetirizine HCl [Allergy Relief] 10 mg PO DAILY 09/11/19 Cholecalciferol (VIT D3) [Vitamin 1,000 unit PO DAILY 09/11/19 D3] Latanoprost 1 drop EACH EYE DAILY 09/11/19 Umeclidinium [place] [Incruse 62.5 mcg IH DAILY 09/11/19 Ellipta] Venlafaxine HCl [Effexor Xr] 75 mg PO DAILY 09/11/19 Acetaminophen [Tylenol] 650 mg PO Q6H PRN 11/12/19 Azithromycin 250 mg PO DAILY 11/12/19 Codeine Phosphate/Guaifenesin 10 ml PO Q4H PRN PRN 11/12/19 [Cheratussin AC Syrup] Insulin Glargine [Lantus SoloStar 25 units SUBCUT BID 11/12/19 Pen] Insulin Lispro [Humalog KwikPen] 5 unit SUBCUT TIDAC 11/12/19 Insulin Lispro [Humalog KwikPen] See Protocol SUBCUT ACHS 11/12/19 Lactobacillus Acidophilus 1 cap PO DAILY 11/12/19 [Acidophilus] Nut.tx.gluc Intol,Lf,Soy/Fiber 237 ml PO TID 11/12/19 [Boost Glucose Control Liquid] metFORMIN HCl [Glucophage] 500 mg PO BIDCM 11/12/19 Surgical History: - - Cardiac stent, T+A. Psychiatric History: Anxiety, Depression Smoking Status: Former smoker Tobacco Use: Cigarettes Alcohol: None Drugs: None - *Family History Maternal History Items: High Cholesterol, Heart Disease, Hypertension Paternal History Items: High Cholesterol, Heart Disease, Hypertension Review of Systems Constitutional: Denies: Chills, Fever, Weight Change HEENT: Denies: Head Aches, Sinus Congestion, Sinus Drainage Cardiovascular: Denies: Chest Pain, Palpitations Respiratory: Denies: Cough, Shortness of breath at rest, Sputum production Gastrointestinal: Denies: Abdominal Pain, Nausea, Vomiting Genitourinary: Denies: Dysuria Musculoskeletal: Denies: Joint Pain, Joint Tenderness Skin: Denies: Rash, Wounds Neurological: Denies: Numbness, Tingling, Focal weakness Psychiatric: Denies: Anxiety, Depression Hematologic/ Lymphatic: Denies: Easy Bruising, Easy Bleeding VTE Information - Inpt Only VTE Present on Admission: No - Physical Exam Vitals/I&O's: Vital Signs Temp Pulse Resp BP Pulse Ox 97.8 F 68 16 138/69 H 98 11/12/19 18:00 11/12/19 18:00 11/12/19 18:00 11/12/19 18:00 11/12/19 18:00 Oxygen Flow Rate (L/min) 3 Oxygen Delivery Method Nasal Cannula Weight: 212 lb 4.882 oz Body Mass Index (BMI) 31.3 Finger Stick Blood Glucose 303 Intake and Output for Last 24 Hours 11/10/19 11/11/19 11/12/19 23:59 23:59 23:59 Intake Total 100 / 100 Balance 100 / 100 General: Alert, Oriented x3, Cooperative, No apparent distress HEENT: Atraumatic, PERRLA, EOMI, Normocephalic Oral: Moist Mucosa Neck: Supple, No JVD Lungs: No rhonchi, No wheeze, No rales, Diminished, - - Fine crackles on the left Cardiovascular: Regular rate, Regular Rhythm, Normal S1, Normal S2, No murmurs Abdomen: Soft, Non Tender, Non-Distended, No Hepato-splenomegaly Extremities: No edema, Capillary Refill Less than 3 Seconds Skin: No rashes, No breakdown Neurological: Neuro grossly intact, Sensory exam intact to light touch and pain Psych/Mental Status: Normal Affect, Appropriate Laboratory Results 11/12/19 16:24: WBC Cancelled, Corrected WBC Cancelled, RBC Cancelled, Hgb Cancelled, Hct Cancelled, MCV Cancelled, MCH Cancelled, MCHC Cancelled, RDW Std Deviation Cancelled, RDW Coeff of [place] Cancelled, Plt Count Cancelled, MPV Cancelled, Immature Gran % (Auto) Cancelled, Neut % (Auto) Cancelled, Lymph % (Auto) Cancelled, Barrow % (Auto) Cancelled, Eos % (Auto) Cancelled, Baso % (Auto) Cancelled, Absolute Neuts (auto) Cancelled, Absolute Lymphs (auto) Cancelled, Total Counted Cancelled, Neutrophils % (Manual) Cancelled, Band Neutrophils % Cancelled, Lymphocytes % (Manual) Cancelled, Monocytes % (Manual) Cancelled, Eosinophils % (Manual) Cancelled, Basophils % (Manual) Cancelled, Metamyelocytes % Cancelled, Myelocytes % Cancelled, Promyelocytes % Cancelled, Blast Cells % Cancelled, Plasma Cell % (Manual) Cancelled, Other Cells % Cancelled, Nucleated RBC % Cancelled, Nucleated RBCs/100 WBC Cancelled, Differential Comment Cancelled, Diff Path Review Cancelled, Hypersegmented Neuts Cancelled, Atypical Lymphocytes Cancelled, Reactive Lymphocytes Cancelled, Smudge Cells Cancelled, Toxic Granulation Cancelled, Toxic Vacuolation Cancelled, Dohle Bodies Cancelled, Trixie Rods Cancelled, Platelet Estimate Cancelled, Plt Morphology Comment Cancelled, RBC Morphology Cancelled, Polychromasia Cancelled, Hypochromasia Cancelled, Poikilocytosis Cancelled, Basophilic Stippling Cancelled, Anisocytosis Cancelled, Microcytosis Cancelled, Macrocytosis Cancelled, Spherocytes Cancelled, Sickle Cells Cancelled, Target Cells Cancelled, Tear Drop Cells Cancelled, Ovalocytes Cancelled, Stomatocytes Cancelled, Landin-Rodman Bodies Cancelled, [place]field Cells Cancelled, Bite Cells Cancelled, Crenated Cell Cancelled, Acanthocytes (Spur) Cancelled, Rouleaux Cancelled, Schistocytes Cancelled 11/12/19 16:24: Sodium Cancelled, Potassium Cancelled, Chloride Cancelled, Carbon Dioxide Cancelled, Anion Gap Cancelled, BUN Cancelled, Creatinine Cancelled, Estim Creat Clear Calc Cancelled, Est GFR (MDRD) Af Amer Cancelled, Est GFR (MDRD) Non-Af Cancelled, BUN/Creatinine Ratio Cancelled, Glucose Cancelled, Calcium Cancelled, Troponin I Cancelled 11/12/19 16:24: Lactic Acid Cancelled 11/12/19 17:15: WBC 6.4, RBC 4.05 L, Hgb 12.3 L, Hct 38.5 L, MCV 95.1 H, MCH 30.4, MCHC 31.9 L, RDW Std Deviation 48.9 H, RDW Coeff of [place] 14.6, Plt Count 206, MPV 10.6, Immature Gran % (Auto) 0.800, Neut % (Auto) 57.0, Lymph % (Auto) 23.3, Barrow % (Auto) 17.9 H, Eos % (Auto) 0.8, Baso % (Auto) 0.2, Absolute Neuts (auto) 3.6, Absolute Lymphs (auto) 1.48, Nucleated RBC % 0 11/12/19 17:15: Lactic Acid Cancelled 11/12/19 17:15: Sodium Cancelled, Potassium Cancelled, Chloride Cancelled, Carbon Dioxide Cancelled, Anion Gap Cancelled, BUN Cancelled, Creatinine Cancelled, Estim Creat Clear Calc Cancelled, Est GFR (MDRD) Af Amer Cancelled, Est GFR (MDRD) Non-Af Cancelled, BUN/Creatinine Ratio Cancelled, Glucose Cancelled, Calcium Cancelled, Troponin I Cancelled 11/12/19 18:29: Lactic Acid 1.1 11/12/19 18:29: Sodium 139, Potassium 5.1, Chloride 104, Carbon Dioxide 32.0, Anion Gap 3 L, BUN 12, Creatinine 0.72, Estim Creat Clear Calc 65.79, Est GFR (MDRD) Af Amer 138, Est GFR (MDRD) Non-Af 114, BUN/Creatinine Ratio 16.7, Glucose 110 H, Calcium 9.0, Troponin I < 0.015 Current Medications Sodium Chloride () 1,000 mls @ 150 mls/hr IV .Q6H40M [facility] Last Admin: 11/12/19 16:54 Dose: 150 mls/hr Documented by: Sodium Chloride () 1,000 mls @ 15 mls/hr IV .Q48H [facility] Assessment/Plan All Active Problems Generalized weakness (Acute) Hyperglycemia (Acute) Failure to thrive (Acute) Scabies (Acute) 1. Acute hypoxic respiratory insufficiency secondary to COVID-19 pneumonia/COPD not in exacerbation -His acute hypoxia resolved and he is back on his baseline of 3 L satting 98% -We will continue to monitor respiratory status, he states that he is a full code and would like to be intubated if necessary -We will add Rocephin and azithromycin just to cover for coinfection -Given his history of COPD, would not hesitate to start prednisone if oxygen status worsens -DuoNebs as needed and incentive spirometer -Continue with his home inhalers 2. HTN/CAD/HLD -Blood pressure is stable currently -Continue with aspirin and statin 3. DM 2 -We will hold his metformin but continue with his home insulin -Accu-Cheks AC at bedtime with sliding scale insulin 4. Glaucoma -Stable -Continue with eyedrops 5. Anxiety/depression -Stable -Continue with Effexor DVT: Lovenox OBSV E&M: 11071 Initial observation care L2
--- NOTE | 2019-11-12 20:07 | ED.RN ---
incorrect number for pt's brother in previous note.
--- NOTE | 2019-11-12 20:10 | ED.RN ---
attempted to contact pt's brother, numbers are incorrect
--- NOTE | 2019-11-12 20:17 | ED.RN ---
called Nate to inform of pt's admission. new number for David, Brother obtained. Also, spoke with brother for update- he was appreciative of call. [phone]
[2019-11-12] MEDS: 0.9% Normal Saline 1,000 ML 75 ML IV (21:46)
[2019-11-12 22:06] LABS: Bedside Glucose 101 mg/dL (70-110)
[2019-11-13 02:57] VITALS: BP 147/91; PULSE 77; RESP 16; TEMP 36.9; O2SAT 92
[2019-11-13 07:51] VITALS: O2SAT 93
[2019-11-13] MEDS: 0.9% Normal Saline 1,000 ML 75 ML IV (08:32)
[2019-11-13] MEDS: Enoxaparin 40 MG/0.4 ML Syringe SC (08:33)
[2019-11-13] MEDS: Glucerna Shake 120 ML LIQUID PO ×2 (08:33→13:06)
[2019-11-13] MEDS: Azithromycin 250 MG Tablet 500 MG PO (08:33)
--- NOTE | 2019-11-13 09:02 | PCM.PN.HOSP ---
Subjective: Patient seen and examined. He has no complaints this morning, and denies shortness of breath, cough, chest pain, nausea, vomiting or diarrhea. He is on 3L of oxgyen, and says his baseline is 4L. Review of systems is otherwise negative. labs and vitals reviewed. He has remained hemodynamically stable. Vitals/I&O's: Vital Signs Temp Pulse Resp BP Pulse Ox 98.5 F 77 16 147/91 H 93 11/13/19 02:57 11/13/19 02:57 11/13/19 02:57 11/13/19 02:57 11/13/19 07:51 Oxygen Flow Rate (L/min) 3 Oxygen Delivery Method Nasal Cannula Weight: 204 lb 12.951 oz Body Mass Index (BMI) 31.3 Finger Stick Blood Glucose 303 Intake and Output for Last 24 Hours 11/11/19 11/12/19 11/13/19 23:59 23:59 23:59 Intake Total 715 / 715 1304.5 / 1304.5 Output Total 350 / 350 Balance 715 / 365 954.5 / 954.5 General: Alert, Oriented x3, Cooperative, No apparent distress HEENT: Atraumatic, PERRLA, EOMI, Normocephalic Oral: Moist Mucosa Neck: Supple, No JVD, Negative Carotid Bruits Lungs: - - mildly decreased breath sounds bibasally, no wheezes or crackles. on 3L of oxygen by nasal canula Cardiovascular: Regular rate, Regular Rhythm, Normal S1, Normal S2, No murmurs Abdomen: Bowel Sounds Present, Soft, Non Tender, Non-Distended, No Hepato-splenomegaly Extremities: No clubbing, No cyanosis, No edema, Capillary Refill Less than 3 Seconds Skin: No rashes, No breakdown Musculoskeletal: No Tenderness to Palpation of Joints or Extremities Lymphatic: No Cervical, Supraclavicular, or Inguinal Adenopathy Neurological: Cranial nerves II-XII grossly intact, Neuro grossly intact, Motor Exam 5/5 strength throughout Psych/Mental Status: Normal Affect, Appropriate, Alert and oriented to time, place, person, mood and affect Laboratory Results 11/12/19 16:24: WBC Cancelled, Corrected WBC Cancelled, RBC Cancelled, Hgb Cancelled, Hct Cancelled, MCV Cancelled, MCH Cancelled, MCHC Cancelled, RDW Std Deviation Cancelled, RDW Coeff of [place] Cancelled, Plt Count Cancelled, MPV Cancelled, Immature Gran % (Auto) Cancelled, Neut % (Auto) Cancelled, Lymph % (Auto) Cancelled, [place] % (Auto) Cancelled, Eos % (Auto) Cancelled, Baso % (Auto) Cancelled, Absolute Neuts (auto) Cancelled, Absolute Lymphs (auto) Cancelled, Total Counted Cancelled, Neutrophils % (Manual) Cancelled, Band Neutrophils % Cancelled, Lymphocytes % (Manual) Cancelled, Monocytes % (Manual) Cancelled, Eosinophils % (Manual) Cancelled, Basophils % (Manual) Cancelled, Metamyelocytes % Cancelled, Myelocytes % Cancelled, Promyelocytes % Cancelled, Blast Cells % Cancelled, Plasma Cell % (Manual) Cancelled, Other Cells % Cancelled, Nucleated RBC % Cancelled, Nucleated RBCs/100 WBC Cancelled, Differential Comment Cancelled, Diff Path Review Cancelled, Hypersegmented Neuts Cancelled, Atypical Lymphocytes Cancelled, Reactive Lymphocytes Cancelled, Smudge Cells Cancelled, Toxic Granulation Cancelled, Toxic Vacuolation Cancelled, Dohle Bodies Cancelled, Trixie Rods Cancelled, Platelet Estimate Cancelled, Plt Morphology Comment Cancelled, RBC Morphology Cancelled, Polychromasia Cancelled, Hypochromasia Cancelled, Poikilocytosis Cancelled, Basophilic Stippling Cancelled, Anisocytosis Cancelled, Microcytosis Cancelled, Macrocytosis Cancelled, Spherocytes Cancelled, Sickle Cells Cancelled, Target Cells Cancelled, Tear Drop Cells Cancelled, Ovalocytes Cancelled, Stomatocytes Cancelled, [place] Bodies Cancelled, [place] Cells Cancelled, Bite Cells Cancelled, Crenated Cell Cancelled, Acanthocytes (Spur) Cancelled, Rouleaux Cancelled, Schistocytes Cancelled 11/12/19 16:24: Sodium Cancelled, Potassium Cancelled, Chloride Cancelled, Carbon Dioxide Cancelled, Anion Gap Cancelled, BUN Cancelled, Creatinine Cancelled, Estim Creat Clear Calc Cancelled, Est GFR (MDRD) Af Amer Cancelled, Est GFR (MDRD) Non-Af Cancelled, BUN/Creatinine Ratio Cancelled, Glucose Cancelled, Calcium Cancelled, Troponin I Cancelled 11/12/19 16:24: Lactic Acid Cancelled 11/12/19 17:15: WBC 6.4, RBC 4.05 L, Hgb 12.3 L, Hct 38.5 L, MCV 95.1 H, MCH 30.4, MCHC 31.9 L, RDW Std Deviation 48.9 H, RDW Coeff of [place] 14.6, Plt Count 206, MPV 10.6, Immature Gran % (Auto) 0.800, Neut % (Auto) 57.0, Lymph % (Auto) 23.3, [place] % (Auto) 17.9 H, Eos % (Auto) 0.8, Baso % (Auto) 0.2, Absolute Neuts (auto) 3.6, Absolute Lymphs (auto) 1.48, Nucleated RBC % 0 11/12/19 17:15: Lactic Acid Cancelled 11/12/19 17:15: Sodium Cancelled, Potassium Cancelled, Chloride Cancelled, Carbon Dioxide Cancelled, Anion Gap Cancelled, BUN Cancelled, Creatinine Cancelled, Estim Creat Clear Calc Cancelled, Est GFR (MDRD) Af Amer Cancelled, Est GFR (MDRD) Non-Af Cancelled, BUN/Creatinine Ratio Cancelled, Glucose Cancelled, Calcium Cancelled, Troponin I Cancelled 11/12/19 18:29: Lactic Acid 1.1 11/12/19 18:29: Sodium 139, Potassium 5.1, Chloride 104, Carbon Dioxide 32.0, Anion Gap 3 L, BUN 12, Creatinine 0.72, Estim Creat Clear Calc 65.79, Est GFR (MDRD) Af Amer 138, Est GFR (MDRD) Non-Af 114, BUN/Creatinine Ratio 16.7, Glucose 110 H, Calcium 9.0, Troponin I < 0.015 11/12/19 21:40: POC Glucose 101 Diagnostic Data Chest X-Ray 11/12/19 16:45 IMPRESSION: Diffuse patchy airspace opacifications in both lung gomez without effusions. Findings are consistent with atypical pneumonia and Covid. Follow-up recommended to assure resolution Degenerative bony changes Electronically Signed: Neftaly Paredes MD at 17:14 EDT , Service support , Current Medications Albuterol/Ipratropium (Duoneb) 3 ml INHALATION Q4HWA.RT PRN PRN Reason: SHORTNESS OF BREATH Azithromycin (Zithromax) 500 mg PO Q24 [facility] Last Admin: 11/13/19 08:33 Dose: 500 mg Documented by: Dextrose (D50w Syringe) 0 gm IV X1 PRN; Protocol PRN Reason: Hypoglycemia Enoxaparin Sodium (Lovenox) 40 mg SC DAILY [facility] Last Admin: 11/13/19 08:33 Dose: 40 mg Documented by: Glucagon () 1 mg IM .X1 PRN PRN Reason: Hypoglycemia Sodium Chloride () 1,000 mls @ 75 mls/hr IV .[id number] [facility] Last Admin: 11/13/19 08:32 Dose: 75 mls/hr Documented by: Ceftriaxone Sodium 2 gm/ (Sodium Chloride) 50 mls @ 100 mls/hr IV Q24 [facility] Last Admin: 11/13/19 08:32 Dose: 100 mls/hr Documented by: Sodium Chloride () 250 mls @ 15 mls/hr IV .[id number] PRN PRN Reason: Saline Flush Sodium Chloride () 250 mls @ 15 mls/hr IV .[id number] PRN PRN Reason: Additional IVPB Infusion Insulin Human Lispro (Humalog Kwikpen (Bkc)) 0 unit SC ACHS [facility]; Protocol Last Admin: 11/13/19 08:32 Dose: Not Given Documented by: Melatonin (Melatonin) 3 mg PO QHS PRN PRN PRN Reason: INSOMNIA Nutritional Formula (Lactose Free) (Glucerna Shake) 120 ml PO 4X/DAY [facility] Last Admin: 11/13/19 08:33 Dose: 120 ml Documented by: Ondansetron HCl (Zofran) 4 mg IV Q8H PRN PRN PRN Reason: NAUSEA/VOMITING Sodium Chloride () 10 - 40 ml IV UD PRN PRN Reason: SALINE FLUSH STROKE Vital Signs/Narrative: Vital Signs Pulse Ox 11/13/19 07:51 93 Medical Necessity - Tobacco Use Smoking Status: Former smoker Tobacco Use: Cigarettes Assessment/Plan All Active Problems Generalized weakness (Acute) Hyperglycemia (Acute) Failure to thrive (Acute) Scabies (Acute) 1. Acute hypoxic respiratory insufficiency in the setting of chronic respiratory failure likely due to COVID 19 is on 3L now, and has been saturating well on IV rocephin and azithromycin on breathing treatment with duonebs titrate oxygen to maintain sats>90% 2. CAD: stable on aspirin and statin. 3. Hyperlipidemia: on statin 4. Type 2 diabetes mellitus on lantus 25IU bid. ISS accuchecks ACHS 5. COPD: not in exacerbation> on breathing treatments with duonebs, and Incruse Ellipta 6. Glaucoma; stable. on latanoprost 7. Anxiety and depression: on venlafaxine DVT prophylaxis: lovenox Disposition: DC to SNF today Inpatient E&M: 00048 Subs Hosp L2
--- NOTE | 2019-11-13 10:59 | CASEMGMT ---
SOCIAL WORK UPDATED ON PLAN FOR DISCHARGE TODAY. CALL TO VALERIE MANZANARES NURSE REPORTS PATIENT WENT OUT OF FACILITY AT 4P YESTERDAY. UPDATED ICU PATIENT WOULD NEED TO D/C PRIOR TO 4PM TODAY. WILL REMAIN AVAILABLE FOR NEEDS. PLAN: RETURN TO [facility]. Tim JACOBO, BABY SITTER, HYDRAULIC PLUMBER.
[2019-11-13 11:14] LABS: Anion Gap 5 (5-15); BUN 10 mg/dL (7-18); Calcium,Total 8.7 mg/dL (8.5-10.1); Chloride 100 mmol/L (98-107); Creatinine, Serum 0.67 mg/dL (0.70-1.30); EST Glomerular Filtration Rate 124 mL/min (>60); Est Glom Filt Rate - Afr Amer 150 mL/min (>60); Estimated Creatinine Clearance 65.79 ml/min; Glucose 140 mg/dL (74-106); Sodium Level 136 mmol/L (136-145)
[2019-11-13 11:31] LABS: Absolute Lymphocyte Count 1.42 X10^3/uL (0.83-4.51); Absolute Neutrophil Count 2.9 X10^3/uL (2.0-7.7); Basophil# 0.01 X10^3/uL; Basophil% 0.2 % (0-1); Eosinophil# 0.05 X10^3/uL; Eosinophils% 0.9 % (0-5); Hematocrit 37.9 % (40-54); Hemoglobin 11.9 g/dL (13.0-16.5); Lymphocyte # 1.42 X10^3/ul (4.0); Lymphocyte % 24.7 % (19-41); Mean Corp Hgb Conc 31.4 g/dL (32-36); Mean Corpuscular Hgb 29.5 pg (27.0-32.0); Mean Platelet Vol. 9.9 fl (6.2-12.0); Monocyte% 22.6 % (0-10); NRBC Flagged by Analyzer 0 % (0-5); Neutrophil # 2.92 X10^3/uL (2.7-7.7); Neutrophil % 50.9 % (47-70); Platelet Count 187 K/mm3 (150-450); RBC Distribution Width CV 14.6 % (11.6-14.6); RBC Distribution Width SD 48.5 fl (35.1-43.9); Red Blood Count 4.03 M/mm3 (4.6-6.2); White Blood Count 5.7 K/mm3 (4.4-11.0)
--- NOTE | 2019-11-13 14:07 | TREXTCAR_ITS ---
- Diet 11/13/19 13:16 Diet: Cardiac: Carb-Controlled Is pt able to select menu?: No - Routine Orders/Code Status Enema Type: Fleetz Enema Frequency: Daily PRN Suppository Type: Dulcolax 10mg Suppository Frequency: Daily PRN O2 Frequency: PRN Keep PO Greater than or Equal to (%): 90 Code Status: Full Code - Therapies Weight Bearing: Weight bearing as tolerated Physical Therapy: Eval and Treat Occupational Therapy: Eval and Treat - Allergies/Procedures Done in Hospital Allergies/Adverse Reactions: Allergies adhesive tape Adverse Reaction (Verified 11/12/19 16:13) Rash tomato Adverse Reaction (Verified 11/12/19 16:13) Rash Procedures: None - Type of Care/Length of Stay Estimated LOS: More Than 30 Days Type of Care Needed: Skilled Rehab Potential: Fair Prognosis: Fair - Additional Orders/Day of Discharge Day of Discharge: 11/13/19 - Dietary and Speech Recommendations Dietitian Recommendations/Changes: Will change diet order to Cardiac:CHO controlled per pt pmhx. Continue ONS at [facility]. - Follow Up Care Primary Care Physician: Darwin Le MD [Primary Care Provider] - Please follow up with your Primary Care Physician in: one week
--- NOTE | 2019-11-13 14:08 | PCM.DC.SUM ---
Discharge Date and Diagnosis Date of Admission: 11/12/19 Date of Discharge: 11/13/19 - Primary Discharge Diagnosis transient hypoxia - Secondary Discharge Diagnosis Chronic Problems Hypertension (Chronic) High cholesterol (Chronic) Diabetes (Chronic) CAD (coronary artery disease) (Chronic) Former tobacco use (Chronic) Hospital Course and Treatment Imaging Results: Diagnostic Data Chest X-Ray 11/12/19 16:45 IMPRESSION: Diffuse patchy airspace opacifications in both lung gomez without effusions. Findings are consistent with atypical pneumonia and Covid. Follow-up recommended to assure resolution Degenerative bony changes Electronically Signed: Neftaly Paredes MD at 17:14 EDT , Service support , Operations: None Procedures: None Summary of Care Provided: The patient is a 73 year old M with a past medical history as outlined. Patient was admitted from [facility] on account of transient hypoxia. Patient had been diagnosed with COVID pneumonia was in [place] and was on 3 L of oxygen at baseline day. However during the day of admission, his oxygen level dropped to the 80s. He had no complaints and was stable but he was brought into the hospital as a precaution was admitted on 11/12/2019. In the ED, he remained stable on 3 L of oxygen and his vitals were stable. Chest x-ray showed bibasilar infiltrates versus atelectasis. Patient had been receiving azithromycin whilst in [place]. She was given a dose of vancomycin and Zosyn in the ED and continued on IV ceftriaxone and azithromycin. He had no fever no chills no leukocytosis. He had no shortness of breath or cough or fever or chills. He was admitted to manage for transient hypoxia likely due to COVID-19 infection. Patient's vitals remained stable throughout admission he did not desaturate again. Follow-up labs showed no leukocytosis and he remained stable patient was discharged back to [facility] on 11/13/2019. He is to continue taking his azithromycin to complete a 5-day course and is follow-up with his primary care doctor within 1 week. Patient seen and examined prior to discharge. He had no complaints. Review systems otherwise negative. Labs and vitals reviewed. Home medication reviewed and reconciled. O/e: Vital Signs Temp Pulse Resp BP Pulse Ox 98.5 F 77 16 147/91 H 93 11/13/19 02:57 11/13/19 02:57 11/13/19 02:57 11/13/19 02:57 11/13/19 07:51 [] General: Alert, Oriented x3, Cooperative, No apparent distress HEENT: Atraumatic, PERRLA, EOMI, Normocephalic Oral: Moist Mucosa Neck: Supple, No JVD, Negative Carotid Bruits Lungs: - - mildly decreased breath sounds bibasally, no wheezes or crackles. on 3L of oxygen by nasal canula Cardiovascular: Regular rate, Regular Rhythm, Normal S1, Normal S2, No murmurs Abdomen: Bowel Sounds Present, Soft, Non Tender, Non-Distended, No Hepato-splenomegaly Extremities: No clubbing, No cyanosis, No edema, Capillary Refill Less than 3 Seconds Skin: No rashes, No breakdown Musculoskeletal: No Tenderness to Palpation of Joints or Extremities Lymphatic: No Cervical, Supraclavicular, or Inguinal Adenopathy Neurological: Cranial nerves II-XII grossly intact, Neuro grossly intact, Motor Exam 5/5 strength throughout Psych/Mental Status: Normal Affect, Appropriate, Alert and oriented to time, place, person, mood and affect Plan as above. For DC to [facility] today. He is to continue to be in self-isolation due to positive COVID-19 infection. - Physical Exam Vitals/I&O's: Vital Signs Temp Pulse Resp BP Pulse Ox 98.5 F 77 16 147/91 H 93 11/13/19 02:57 11/13/19 02:57 11/13/19 02:57 11/13/19 02:57 11/13/19 07:51 Oxygen Flow Rate (L/min) 3 Oxygen Delivery Method Nasal Cannula Weight: 204 lb 12.951 oz Body Mass Index (BMI) 31.3 Finger Stick Blood Glucose 303 Intake and Output for Last 24 Hours 11/11/19 11/12/19 11/13/19 23:59 23:59 23:59 Intake Total 715 / 715 1474.5 / 1474.5 Output Total 675 / 675 Balance 715 / 365 799.5 / 799.5 Laboratory Results 11/12/19 16:24: WBC Cancelled, Corrected WBC Cancelled, RBC Cancelled, Hgb Cancelled, Hct Cancelled, MCV Cancelled, MCH Cancelled, MCHC Cancelled, RDW Std Deviation Cancelled, RDW Coeff of [place] Cancelled, Plt Count Cancelled, MPV Cancelled, Immature Gran % (Auto) Cancelled, Neut % (Auto) Cancelled, Lymph % (Auto) Cancelled, [place] % (Auto) Cancelled, Eos % (Auto) Cancelled, Baso % (Auto) Cancelled, Absolute Neuts (auto) Cancelled, Absolute Lymphs (auto) Cancelled, Total Counted Cancelled, Neutrophils % (Manual) Cancelled, Band Neutrophils % Cancelled, Lymphocytes % (Manual) Cancelled, Monocytes % (Manual) Cancelled, Eosinophils % (Manual) Cancelled, Basophils % (Manual) Cancelled, Metamyelocytes % Cancelled, Myelocytes % Cancelled, Promyelocytes % Cancelled, Blast Cells % Cancelled, Plasma Cell % (Manual) Cancelled, Other Cells % Cancelled, Nucleated RBC % Cancelled, Nucleated RBCs/100 WBC Cancelled, Differential Comment Cancelled, Diff Path Review Cancelled, Hypersegmented Neuts Cancelled, Atypical Lymphocytes Cancelled, Reactive Lymphocytes Cancelled, Smudge Cells Cancelled, Toxic Granulation Cancelled, Toxic Vacuolation Cancelled, Dohle Bodies Cancelled, Trixie Rods Cancelled, Platelet Estimate Cancelled, Plt Morphology Comment Cancelled, RBC Morphology Cancelled, Polychromasia Cancelled, Hypochromasia Cancelled, Poikilocytosis Cancelled, Basophilic Stippling Cancelled, Anisocytosis Cancelled, Microcytosis Cancelled, Macrocytosis Cancelled, Spherocytes Cancelled, Sickle Cells Cancelled, Target Cells Cancelled, Tear Drop Cells Cancelled, Ovalocytes Cancelled, Stomatocytes Cancelled, [place] Bodies Cancelled, [place] Cells Cancelled, Bite Cells Cancelled, Crenated Cell Cancelled, Acanthocytes (Spur) Cancelled, Rouleaux Cancelled, Schistocytes Cancelled 11/12/19 16:24: Sodium Cancelled, Potassium Cancelled, Chloride Cancelled, Carbon Dioxide Cancelled, Anion Gap Cancelled, BUN Cancelled, Creatinine Cancelled, Estim Creat Clear Calc Cancelled, Est GFR (MDRD) Af Amer Cancelled, Est GFR (MDRD) Non-Af Cancelled, BUN/Creatinine Ratio Cancelled, Glucose Cancelled, Calcium Cancelled, Troponin I Cancelled 11/12/19 16:24: Lactic Acid Cancelled 11/12/19 17:15: WBC 6.4, RBC 4.05 L, Hgb 12.3 L, Hct 38.5 L, MCV 95.1 H, MCH 30.4, MCHC 31.9 L, RDW Std Deviation 48.9 H, RDW Coeff of [place] 14.6, Plt Count 206, MPV 10.6, Immature Gran % (Auto) 0.800, Neut % (Auto) 57.0, Lymph % (Auto) 23.3, [place] % (Auto) 17.9 H, Eos % (Auto) 0.8, Baso % (Auto) 0.2, Absolute Neuts (auto) 3.6, Absolute Lymphs (auto) 1.48, Nucleated RBC % 0 11/12/19 17:15: Lactic Acid Cancelled 11/12/19 17:15: Sodium Cancelled, Potassium Cancelled, Chloride Cancelled, Carbon Dioxide Cancelled, Anion Gap Cancelled, BUN Cancelled, Creatinine Cancelled, Estim Creat Clear Calc Cancelled, Est GFR (MDRD) Af Amer Cancelled, Est GFR (MDRD) Non-Af Cancelled, BUN/Creatinine Ratio Cancelled, Glucose Cancelled, Calcium Cancelled, Troponin I Cancelled 11/12/19 18:29: Lactic Acid 1.1 11/12/19 18:29: Sodium 139, Potassium 5.1, Chloride 104, Carbon Dioxide 32.0, Anion Gap 3 L, BUN 12, Creatinine 0.72, Estim Creat Clear Calc 65.79, Est GFR (MDRD) Af Amer 138, Est GFR (MDRD) Non-Af 114, BUN/Creatinine Ratio 16.7, Glucose 110 H, Calcium 9.0, Troponin I < 0.015 11/12/19 21:40: POC Glucose 101 11/13/19 10:55: WBC 5.7, RBC 4.03 L, Hgb 11.9 L, Hct 37.9 L, MCV 94.0, MCH 29.5, MCHC 31.4 L, RDW Std Deviation 48.5 H, RDW Coeff of [place] 14.6, Plt Count 187, MPV 9.9, Immature Gran % (Auto) 0.700, Neut % (Auto) 50.9, Lymph % (Auto) 24.7, [place] % (Auto) 22.6 H, Eos % (Auto) 0.9, Baso % (Auto) 0.2, Absolute Neuts (auto) 2.9, Absolute Lymphs (auto) 1.42, Nucleated RBC % 0 11/13/19 10:55: Sodium 136, Potassium 5.0, Chloride 100, Carbon Dioxide 31.0, Anion Gap 5, BUN 10, Creatinine 0.67 L, Estim Creat Clear Calc 65.79, Est GFR (MDRD) Af Amer 150, Est GFR (MDRD) Non-Af 124, BUN/Creatinine Ratio 15.0, Glucose 140 H, Calcium 8.7 Current Medications Albuterol/Ipratropium (Duoneb) 3 ml INHALATION Q4HWA.RT PRN PRN Reason: SHORTNESS OF BREATH Azithromycin (Zithromax) 500 mg PO Q24 [facility] Last Admin: 11/13/19 08:33 Dose: 500 mg Documented by: Dextrose (D50w Syringe) 0 gm IV X1 PRN; Protocol PRN Reason: Hypoglycemia Enoxaparin Sodium (Lovenox) 40 mg SC DAILY [facility] Last Admin: 11/13/19 08:33 Dose: 40 mg Documented by: Glucagon () 1 mg IM .X1 PRN PRN Reason: Hypoglycemia Sodium Chloride () 1,000 mls @ 75 mls/hr IV .[id number] [facility] Last Admin: 11/13/19 08:32 Dose: 75 mls/hr Documented by: Ceftriaxone Sodium 2 gm/ (Sodium Chloride) 50 mls @ 100 mls/hr IV Q24 [facility] Last Infusion: 11/13/19 10:19 Dose: Infused Documented by: Sodium Chloride () 250 mls @ 15 mls/hr IV .[id number] PRN PRN Reason: Saline Flush Sodium Chloride () 250 mls @ 15 mls/hr IV .[id number] PRN PRN Reason: Additional IVPB Infusion Insulin Human Lispro (Humalog Kwikpen (Bkc)) 0 unit SC ACHS [facility]; Protocol Last Admin: 11/13/19 11:17 Dose: Not Given Documented by: Melatonin (Melatonin) 3 mg PO QHS PRN PRN PRN Reason: INSOMNIA Nutritional Formula (Lactose Free) (Glucerna Shake) 120 ml PO 4X/DAY [facility] Last Admin: 11/13/19 13:06 Dose: 120 ml Documented by: Ondansetron HCl (Zofran) 4 mg IV Q8H PRN PRN PRN Reason: NAUSEA/VOMITING Sodium Chloride () 10 - 40 ml IV UD PRN PRN Reason: SALINE FLUSH Discharge Diet: Low fat/ Low Cholesterol Home Medications: Medications to take at Discharge Aspirin [Aspir 81] 81 mg PO DAILY 06/23/19 Simvastatin 40 mg PO QHS 08/14/19 Albuterol Inhaler [Ventolin Hfa] 2 puff INHALATION BID PRN PRN 09/11/19 Cetirizine HCl [Allergy Relief] 10 mg PO DAILY 09/11/19 Cholecalciferol (VIT D3) [Vitamin D3] 1,000 unit PO DAILY 09/11/19 Latanoprost 1 drop EACH EYE DAILY 09/11/19 Umeclidinium [place] [Incruse Ellipta] 62.5 mcg IH DAILY 09/11/19 Venlafaxine HCl [Effexor Xr] 75 mg PO DAILY 09/11/19 Acetaminophen [Tylenol] 650 mg PO Q6H PRN 11/12/19 Azithromycin 250 mg PO DAILY 11/12/19 Codeine Phosphate/Guaifenesin [Cheratussin AC Syrup] 10 ml PO Q4H PRN PRN 11/12/19 Insulin Glargine [Lantus SoloStar Pen] 25 units SUBCUT BID 11/12/19 Insulin Lispro [Humalog KwikPen] 5 unit SUBCUT TIDAC 11/12/19 Insulin Lispro [Humalog KwikPen] See Protocol SUBCUT ACHS 11/12/19 Lactobacillus Acidophilus [Acidophilus] 1 cap PO DAILY 11/12/19 Nut.tx.gluc Intol,Lf,Soy/Fiber [Boost Glucose Control Liquid] 237 ml PO TID 11/12/19 metFORMIN HCl [Glucophage] 500 mg PO BIDCM 11/12/19 Primary Care Physician: Darwin Le MD [Primary Care Provider] - Please follow up with your Primary Care Physician in: one week Disposition: [facility] facility Minutes spent on discharge:: 35 Patient Condition:: Stable Medical Necessity - Tobacco Use Smoking Status: Former smoker Tobacco Use: Cigarettes Meaningful Use Info Meaningful Use Diagnoses (Choose all that apply): None applicable Inpatient E&M: 62562 Disch Hosp OBSV E&M: 59570 Observation care discharge
--- NOTE | 2019-11-13 14:27 | CASEMGMT ---
SOCIAL WORK SPOKE WITH MARÍA AT [facility]. UPDATED PLAN FOR PATIENT TO DISCHARGE TODAY AND NURSE WILL BE CALLING WITH REPORT. CALL TO FLOOR, SPOKE WITH DAWN. DAWN PROVIDED WITH CONTACT NUMBERS FOR [facility]-PHONE AND FAX. STOCK PARTS INSPECTOR TO SET UP TRANSPORT. PLAN: RETURN TO [facility] Tim JACOBO, NUCLEAR WEAPONS MECHANICAL SPECIALIST, STEREO COMPILER.
== END 2019-11-13 16:15 | disposition skilled nursing facility (03) ==
LOC: ED 17:04 → ICU 20:15
PROVIDERS: Admitting Provider Family Medicine; Emergency Provider Emergency Medicine; PCP Family Medicine; Visit Provider Student in an Organized Health Care Education/Training Program
DX: U07.1 COVID-19 (principal); J12.89 Other viral pneumonia; I10 Essential (primary) hypertension; I25.10 Atherosclerotic heart disease of native coronary artery without angina pectoris; E11.65 Type 2 diabetes mellitus with hyperglycemia; J44.0 Chronic obstructive pulmonary disease with (acute) lower respiratory infection; F32.9 Major depressive disorder, single episode, unspecified; F41.9 Anxiety disorder, unspecified; H40.9 Unspecified glaucoma; E78.5 Hyperlipidemia, unspecified; J96.11 Chronic respiratory failure with hypoxia; Z87.891 Personal history of nicotine dependence; Z79.899 Other long term (current) drug therapy; Z79.4 Long term (current) use of insulin; Z79.82 Long term (current) use of aspirin; Z99.81 Dependence on supplemental oxygen
CPT/HCPCS: 71045; 80048; 82962; 83605; 84484; 85025; 87040; 93005; 96361; 96365; 96366; 96367; 96372; 97162; 97165; 99218; 99285; J7030; J7050; A4216; G0378; J0696